=== PATIENT | female | born 1955 | race Caucasian/White ===

== ENCOUNTER → 2017-12-22 14:36 | Outpatient (CLI) | payer OTHER, SELFPAY ==
[2017-12-22 15:43] LABS: Add Manual Diff / Slide Review NO; Basophils Percent Auto 0.3 % (0-2); Eosinophils Percent Auto 3.6 % (2-4); Lymphocytes Percent Auto 33.5 % (25-40); Mean Corpuscular HGB Conc 34.3 % (30-36); Mean Corpuscular Hemoglobin 31.2 PG (26-34); Mean Corpuscular Volume 91.1 fL (80-100); Monocytes Percent Auto 6.8 % (3-14); Neutrophils Absolute Auto 4100 /uL (3000-5900); Neutrophils Percent Auto 55.8 % (50-75); Platelet Count 271 X10^3/uL (150-400); Red Blood Cell Count 3.84 X10^6/uL (4.0-5.2); Red Cell Distribution Width 12.9 % (11.6-14.8); White Blood Cell Count 7.3 X10^3/uL (4.5-11.0)
[2017-12-22 16:10] LABS: Blood Urea Nitrogen 22 mg/dL (7-17); Calcium 9.8 mg/dL (8.4-10.2); Carbon Dioxide 32 mmol/L (22-32); Chloride 100 mmol/L (98-107); Estimated Glomerular Filt Rate 55.8 mL/min (>60); Glucose 81 mg/dL (80-110); HEMOLYSIS < 15 (0-50); Potassium 4.6 mmol/L (3.4-5.1); Sodium 140 mmol/L (137-145)
== END ==
PROVIDERS: PCP Family Medicine; Visit Provider Orthopaedic Surgery Orthopaedic Surgery of the Spine
DX: Z01.818 Encounter for other preprocedural examination (principal)
CPT/HCPCS: 36415; 80048; 85025; 93005; 93010

== ENCOUNTER 2018-01-18 06:22 | Inpatient (IN) | payer OTHER, SELFPAY ==
[2018-01-01 14:16] VITALS: BMI 29.9
[2018-01-18] VITALS (14 sets, daily range): BP systolic 114–163; BP diastolic 50–79; PULSE 71–81; RESP 3–18; TEMP 36.4–36.9; O2SAT 95–100; BMI 29.9
--- NOTE | 2018-01-18 | DI.RAD.S_ITS ---
PROCEDURE: XR LUMBAR SPINE 2-3V INDICATIONS: L4-5, L5-S1 TLIF TECHNIQUE: 2 views of the lumbar spine were acquired. COMPARISON: [facility], , L-SPINE 2-3 VIEWS, 09/26/2016, 17:01. IMPRESSION: Two images obtained with a mobile image intensifier demonstrating chin and pedicle screw fixation of L4-S1. The intervertebral body spacer at L5-S1 may be displaced to the patient's left. Consider a dedicated radiograph for further evaluation. Dictated by: Jean Castro M.D. on 01/18/2018 at 12:14 Approved by: Jean Castro M.D. on 01/18/2018 at 12:15
[2018-01-18] MEDS: LACTATED RINGERS 1,000 ML 42 ML IV (07:39)
[2018-01-18] MEDS: APREPITANT 40 MG CAPSULE PO (07:57)
[2018-01-18] MEDS: SCOPOLAMINE 1 PATCH TOP (07:58)
[2018-01-18] MEDS: CEFAZOLIN 2 GM/100 ML FROZ.PIGGY IV ×2 (08:00→16:00)
--- NOTE | 2018-01-18 08:47 | SUR.OPER ---
Prone on spine table, head in foam head support, padded chest and pelvic supports, gel pad at knees, lower legs supported by pillows; nipples, genitalia and toes free of pressure, arms secured on foam padded arm boards at <90 degrees abduction. Tape over blanket at thigh secured to table.
[2018-01-18] MEDS: BUPIVACAINE 0.25% W/ EPI VIAL 50 ML INJ (09:36)
[2018-01-18] MEDS: BUPIVACAINE LIPOSOME 266 MG/20 ML VIAL INJ (09:40)
[2018-01-18] MEDS: ACETAMINOPHEN IV 1,000 MG/100 ML VIAL 400 MG IV (10:15)
--- NOTE | 2018-01-18 11:22 | PM.OP.1 ---
Operative Date/Time/Diagnoses Date of procedure: 01/18/18 Time of procedure: 08:22 Pre-op diagnosis: 1. L4-5, L5-S1 spondylolisthesis 2. L4-5, L5-S1 spinal stenosis. 3. L4-5, L5-S1 spondylosis with radiculopathy Post-op diagnosis: same Procedure & Clinicians Procedure: 1. L4-5, L5-S1 Postero-lateral and posterior interbody fusion 2. L4-5, L5-S1 interbody cage placement. 3. L4-5, L5-S1 decompressive laminectomy with bilateral facetecomies 4. L4-5, L5-S1 Posterior segmental instrumentation 5. Spangler of bone marrow from iliac crest 6. Utilization of microsurgical technique and operating microscope Same procedure as scheduled: Yes Indications: Patient has been having chronic back pain and worsening lumbar radiculopathy. Patient failed multiple conservative management with worsening pain weakness and numbness in her lower extremity. Patient has been having difficulty performing activity of daily living. After discussing risks benefits of treatment options, patient elected proceed with surgery. Surgeon: Shay Garrett Pig Handler: Kristel Maravilla Click Yes if Unassisted: No Anesthesia Type: General Operative Notes Closure Type: primary Specimen(s): none sent Implants & Drains: Globus revolve sccrews and Rise cages Applied: catheter Estimated Blood Loss (mL): 100 Blood products transfused: none Procedure in detail: Patient was seen in the preoperative area. Risks and benefits of the surgery was discussed with the patient. Informed consent was obtained from the patient and placed in the chart. Surgical site was marked. Patient was taken to the operative room. General anesthesia was administered. Prophylactic antibiotic was given to the patient less than 30 min before the incision was made. Patient was placed into a prone position on the Mark table. Patient's back was then prepped and draped in the sterile fashion. Time-out was performed at this time. Using AP and lateral C-arm imaging the interval between L4-S1 was identified and marked on patient's back. A 2 inch incision 2 in from midline was made on the left side first. The fascia was incised in line with skin incision. Globus MARS retractors was placed inside the incision and docked onto the L4 and L5 lamina. Using microsurgical technique and operating microscope, a L4 and L5 laminectomy and L4-5 L5-S1 facetectomy was performed using a Kerrison rongeur. The disc space at L4-5, L5-S1 was identified. And a total diskectomy was performed at L4-5, L5-S1 level. The endplates were decorticated using a rasp and shaver. The total diskectomy and decortication was performed at L4-5, L5-S1 level in order to to accomplish a L4-5, L5-S1 fusion. The local bone from the laminectomy and facetectomy was saved for local bone grafting. After the total diskectomy and decortication was completed, Globus viacell bone graft material was combined with local bone that was harvested earlier. At this time, a separate skin is incision was made over the iliac crest. A Jamshidi needle was inserted into the iliac crest through a separate skin incision. 5 cc of bone marrow aspiration was obtained through the separate skin incision using a Jamshidi needle from the iliac crest. The bone marrow aspiration was combined with local bone and the via cell bone grafting material. The bone grafting material was placed into the L4-5, L5-S1 interbody space along with two cages, one expandable cage at each level. The cages were expanded to their maximum height using the torque limiting screwdriver. At this time a mirror image incision was made on the right side. The fascia was incised in line with the skin incision. Globus MARS retractor was inserted and docked onto the L4-5, L5-S1 posterolateral gutter. Using the power drill, posterior-lateral decortication was performed at L4-5, L5-S1 level until bleeding cortical bone was identified. The remaining bone grafting material was placed into the L4-5 L5-S1 posterior lateral gutter he order to accomplish posterolateral fusion at the L4-5 L5-S1 levels. Using the double C-arm technique, pedicle screws were placed into the L4, L5, S1 pedicles bilaterally. This was done by placing the Jamshidi needle into the pedicles, then placing the guidewires over the Jamshidi needle, and finally placing the cannulated screws over the guidewires bilaterally. After the pedicle screws were placed, 2 titanium rods was locked into the heads of the pedicle screws using locking caps and torque limiting screwdriver. Total 6 pedicles screws were placed. After all the hardware was placed, and confirmed with AP and lateral C-arm imaging, the wound was then irrigated with sterile normal saline and packed with Ray-Guilherme gauze for 3 min to accomplish hemostasis. After the gauze was removed the deep fascia was closed with #1 Vicryl suture. The subcutaneous layer was closed with 2-0 Vicryl. The skin was closed with skin jackson. Patient tolerated the procedure well. There were no complications. Complications: none Condition: stable Disposition: PACU Plan for aftercare: Admit to inpatient hospital
[2018-01-18] MEDS: hydrOXYzine 50 MG/ML INJ IM (11:52)
[2018-01-18] MEDS: LORazepam 2 MG/ML SYRINGE 0.5 MG IV (12:34)
--- NOTE | 2018-01-18 13:06 | PC.NURSE ---
Pt to room 225 via bed at 1225. Pt very drowsy but awakens to loud verbal stimulation or shoulder shake. Pt has a hx of obstructive sleep apnea and has snoring respirations with long pauses up to 45 seconds. RT called and checked on Pt. Pt is averaging 2-4 resps per minutes and is sitting up at 40 degrees. Called OR/PACU to have Dr. Garrett notified and see if he would like Pt to be placed on tele or other. Awaiting orders. O2 sat on 1L of O2 via NC is 97-100%. Ice chip given to Pt for mouth dryness during a brief awake period but Pt is unable to answer questions or follow direction at this time.
[2018-01-18] MEDS: SODIUM CHLORIDE 0.9% 1,000 ML 100 ML IV ×2 (13:35→22:51)
--- NOTE | 2018-01-18 14:17 | PM.CN ---
History of Present Illness Chief complaint: [id number] [facility] Medical History Bilateral cataracts (Acute) Chronic pain (Acute) Colon polyps (Acute) Endometriosis (Acute) GERD (gastroesophageal reflux disease) (Acute) Genital herpes simplex (Acute) Headache, migraine (Acute) Hemorrhoids (Acute) Hyperlipidemia (Acute) Osteoarthritis (Acute) Polio (Acute) Restless leg syndrome (Acute) Sciatica (Acute) Sleep apnea (Acute) Tinnitus (Acute) Surgical History Hx of laparoscopy (Acute) Hx of tonsillectomy (Acute) Status post breast lumpectomy Status post cholecystectomy Status post hysterectomy Family History Father Stroke Alzheimer disease Grandfather Diabetes mellitus Heart disease Stroke Mother Dementia Mental health problem Sjogren's disease Skin cancer Cataract Social History Smoking Status: Former smoker alcohol intake: current Meds Home Medications Medication Instructions Recorded Confirmed Type nadolol [Corgard] 20 mg PO BEDTIME #0 07/15/16 01/18/18 History acetaminophen [Tylenol Extra 1,000 mg PO Q6H PRN 01/01/18 01/01/18 History Strength] losartan 50 mg PO QAM 01/01/18 01/18/18 History methocarbamol 750 mg PO QID PRN 01/01/18 01/01/18 History naproxen sodium [Aleve] 1 - 2 tab PO DAILY PRN 01/01/18 01/01/18 History Allergies Allergy/AdvReac Type Severity Reaction Status Date / Time codeine Allergy Mild Hives Verified 01/01/18 14:34 Exam Vital Signs (past 8 hours): - 01/18/18 06:45 01/18/18 11:39 01/18/18 11:44 Temperature 97.6 F 98 F Pulse Rate 81 79 78 Respiratory Rate 18 10 L 12 Blood Pressure 163/71 H 114/50 L 135/70 Pulse Oximetry 100 99 98 01/18/18 11:49 01/18/18 11:54 01/18/18 12:09 Temperature Pulse Rate 80 80 79 Respiratory Rate 11 L 10 L 10 L Blood Pressure 116/64 133/71 141/70 H Pulse Oximetry 99 96 100 01/18/18 12:14 01/18/18 12:50 Temperature Pulse Rate 79 76 Respiratory Rate 10 L 3 L Blood Pressure 132/71 Pulse Oximetry 98 Oxygen Delivery Method Nasal Cannula Oxygen Flow Rate 4 Assessment & Plan Plan: Assessment/Plan Narrative: Called to floor post op to evaluate post op TLIF patient for decreased respiratory status. Oxygen saturation remains stable, but she is needing continuous reminders to breathe. Patient had dilaudid 2mg, fentanyl 100 mcg and versed 2mg during the procedure (hours ago). And she received 0.5 mg Ativan in the PACU. She has a reported history of sleep apnea but does not use CPAP d/t claustrophobia. She is easy to arouse but is quite sedated with RR <6/min. Flumazenil 0.1mg given IV and she became easier to arouse, but RR still slow. Narcan 0.04 mg (diluted mixture) given with positive results. She will be transferred to the ICU for closer observation and management. Surgeon notified.
--- NOTE | 2018-01-18 14:26 | P.CONS_ITS ---
History of Present Illness Chief complaint: [id number] [facility] Medical History Bilateral cataracts (Acute) Chronic pain (Acute) Colon polyps (Acute) Endometriosis (Acute) GERD (gastroesophageal reflux disease) (Acute) Genital herpes simplex (Acute) Headache, migraine (Acute) Hemorrhoids (Acute) Hyperlipidemia (Acute) Osteoarthritis (Acute) Polio (Acute) Restless leg syndrome (Acute) Sciatica (Acute) Sleep apnea (Acute) Tinnitus (Acute) Surgical History Hx of laparoscopy (Acute) Hx of tonsillectomy (Acute) Status post breast lumpectomy Status post cholecystectomy Status post hysterectomy Family History Father Stroke Alzheimer disease Grandfather Diabetes mellitus Heart disease Stroke Mother Dementia Mental health problem Sjogren's disease Skin cancer Cataract Social History Smoking Status: Former smoker alcohol intake: current Meds Home Medications Medication Instructions Recorded Confirmed Type nadolol [Corgard] 20 mg PO BEDTIME #0 07/15/16 01/18/18 History acetaminophen [Tylenol Extra 1,000 mg PO Q6H PRN 01/01/18 01/01/18 History Strength] losartan 50 mg PO QAM 01/01/18 01/18/18 History methocarbamol 750 mg PO QID PRN 01/01/18 01/01/18 History naproxen sodium [Aleve] 1 - 2 tab PO DAILY PRN 01/01/18 01/01/18 History Allergies Allergy/AdvReac Type Severity Reaction Status Date / Time codeine Allergy Mild Hives Verified 01/01/18 14:34 Exam Vital Signs (past 8 hours): - 01/18/18 06:45 01/18/18 11:39 01/18/18 11:44 Temperature 97.6 F 98 F Pulse Rate 81 79 78 Respiratory Rate 18 10 L 12 Blood Pressure 163/71 H 114/50 L 135/70 Pulse Oximetry 100 99 98 01/18/18 11:49 01/18/18 11:54 01/18/18 12:09 Temperature Pulse Rate 80 80 79 Respiratory Rate 11 L 10 L 10 L Blood Pressure 116/64 133/71 141/70 H Pulse Oximetry 99 96 100 01/18/18 12:14 01/18/18 12:50 Temperature Pulse Rate 79 76 Respiratory Rate 10 L 3 L Blood Pressure 132/71 Pulse Oximetry 98 Oxygen Delivery Method Nasal Cannula Oxygen Flow Rate 4 Assessment & Plan Plan: Assessment/Plan Narrative: Called to floor post op to evaluate post op TLIF patient for decreased respiratory status. Oxygen saturation remains stable, but she is needing continuous reminders to breathe. Patient had dilaudid 2mg, fentanyl 100 mcg and versed 2mg during the procedure (hours ago). And she received 0.5 mg Ativan in the PACU. She has a reported history of sleep apnea but does not use CPAP d/t claustrophobia. She is easy to arouse but is quite sedated with RR <6 /min. Flumazenil 0.1mg given IV and she became easier to arouse, but RR still slow. Narcan 0.04 mg (diluted mixture) given with positive results. She will be transferred to the ICU for closer observation and management. Surgeon notified.
[2018-01-18] MEDS: FLUMAZENIL 0.5 MG/5 ML MDV 0.1 MG IV (14:39)
[2018-01-18] MEDS: NALOXONE 0.4 MG/ML VIAL IV ×3 (14:41→15:07)
--- NOTE | 2018-01-18 14:41 | PC.NURSE ---
Dr. Cantrell up to see Pt in room 225 for decreased respiratory rate. Narcan and Flumazinal given but respiratory rate continues at <6 per minute and Pt is requiring continuous reminders to breathe. Orders given to transfer Pt to ICU and Pt was transferred with [facility] and all belongings at 1416.
--- NOTE | 2018-01-18 14:51 | PC.NURSE ---
dr. Cantrell in to see pt on Acute for RR 4-9. Flumazenil and Narcan given. pt transfered to ICU. BP and HR stable. RR 4-8. Dr. Cantrell in again to eval pt. pt turned to right side. O2 at 2L/NC.
--- NOTE | 2018-01-18 15:55 | PC.NURSE ---
1545- Patient is sleepy but wakes easily and responds appropriately to questions. Respirations between 8-10. End Tidal CO2 is 46. Patient states her pain is at 6. Vitals are wnl. Will monitor.
--- NOTE | 2018-01-18 16:59 | PT.IPTN ---
Current Diagnoses Spondylolisthesis, lumbar region (01/18/18) Other spondylosis with radiculopathy, lumbar region (01/18/18) Spinal stenosis, lumbar region without neurogenic claudication (01/18/18) Surgery Performed Operation Date: 01/18/18 07:45 Actual Procedures p L4-5, L5-S1 TLIF w/ Posterior Instrumentation - Shay Garrett MD Physical Therapy Treatment Note M3 PT-IP Subjective Start: 01/18/18 16:58 Freq: NEEDED Status: Active Protocol: Document 01/18/18 16:59 AB (Rec: 01/18/18 16:59 AB [id number]) Subjective Physical Therapy Visit Type Notes checked with nursing and stated that pt is not ready for PT at this time. will f/u tomorrow.
[2018-01-18] MEDS: OXYCODONE IR 5 MG TABLET 10 MG PO ×3 (17:26→22:51)
[2018-01-18] MEDS: hydrOXYzine pamoate 25 MG CAPSULE PO (20:12)
[2018-01-18] MEDS: NADOLOL 40 MG TABLET 20 MG PO (20:16)
[2018-01-18] MEDS: SENNOSIDES 8.6 MG TABLET 17.2 MG PO (20:17)
[2018-01-18] MEDS: DOCUSATE 100 MG CAPSULE PO (20:17)
[2018-01-19] VITALS (7 sets, daily range): BP systolic 97–126; BP diastolic 52–72; PULSE 71–78; RESP 14–16; TEMP 36.4–36.9; O2SAT 95–100
[2018-01-19] MEDS: CEFAZOLIN 2 GM/100 ML FROZ.PIGGY IV (00:04)
[2018-01-19] MEDS: OXYCODONE IR 5 MG TABLET 10 MG PO ×7 (01:54→21:18)
[2018-01-19 05:26] LABS: Hematocrit 30.1 % (36-46); Hemoglobin 10.5 g/dL (12.0-16.0)
[2018-01-19] MEDS: LOSARTAN 50 MG TABLET PO (08:03)
[2018-01-19] MEDS: DOCUSATE 100 MG CAPSULE PO ×2 (08:03→20:54)
--- NOTE | 2018-01-19 10:10 | PT.IIE ---
Current Diagnoses Spondylolisthesis, lumbar region (01/18/18) Other spondylosis with radiculopathy, lumbar region (01/18/18) Spinal stenosis, lumbar region without neurogenic claudication (01/18/18) Surgery Performed Operation Date: 01/18/18 07:45 Actual Procedures p L4-5, L5-S1 TLIF w/ Posterior Instrumentation - Shay Garrett MD Surgical History (Last Updated 01/01/18 @ 14:48 by Marybel Schroeder RN) Hx of laparoscopy (Acute) Hx of tonsillectomy (Acute) Status post breast lumpectomy Status post cholecystectomy Status post hysterectomy Medical History (Last Updated 01/01/18 @ 14:48 by Marybel Schroeder RN) Bilateral cataracts (Acute) Chronic pain (Acute) Colon polyps (Acute) Endometriosis (Acute) GERD (gastroesophageal reflux disease) (Acute) Genital herpes simplex (Acute) Headache, migraine (Acute) Hemorrhoids (Acute) Hyperlipidemia (Acute) Osteoarthritis (Acute) Polio (Acute) Restless leg syndrome (Acute) Sciatica (Acute) Sleep apnea (Acute) Tinnitus (Acute) Physical Therapy Inpatient Evaluation/Re-Eval M1 PT/OT-IP Prior Functional Status Start: 01/18/18 16:58 Freq: NEEDED Status: Active Protocol: Document 01/19/18 10:10 AB (Rec: 01/19/18 12:52 AB [id number]) Medical Review Prior Functional Status Medical History Reviewed Yes Communication able to make needs known Mobility and Gait pt stated that she is independent with all mobilities and ambulation without AD Social History Household Members none Living Arrangements Apartment/Condo Number of Floors (Floors) Two Floors Number of Stairs To Enter/Railing? pt will stay on main level. stated that she has a day bed on 1st floor of the house. 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 Additional Social History Comment pt works for home [employer] M2 PT-IP Current Condition Start: 01/18/18 16:58 Freq: NEEDED Status: Active Protocol: Document 01/19/18 10:10 AB (Rec: 01/19/18 12:52 AB [id number]) Physical Therapy Current Condition Current Condition Evaluation Date 01/19/18 Treatment Diagnosis s/p L4-5 L5S1 fusion and lami; difficulty in walking Onset Date 01/18/18 Precautions Lumbar Precautions Log Roll No Twisting Limit Bending Lifting Restriction of 10 lbs Gait Belt above Incisional Area M3 PT-IP Subjective Start: 01/18/18 16:58 Freq: NEEDED Status: Active Protocol: Document 01/19/18 10:10 AB (Rec: 01/19/18 12:52 AB [id number]) Subjective Physical Therapy Visit Type Type Initial Evaluation Visit Start Time 10:10 Visit Stop Time 10:51 Total Visit Minutes 41 Number of INSTALLATION & MAINTENANCE EXECUTIVE Visits 0 Physical Therapy Visit Comments Patient Comments pt agreeable to do PT Therapy Pain Assessment Pain When Pain Assessed At Rest Pain Present Pain Present Pain Reported Location Lower Back Intensity 5 Scale Used Numeric (1 - 10) Pain Management Techniques Apply Cold Re-positioning Timing of Activity with Medications M4 PT-IP Mobility and Gait Start: 01/18/18 16:58 Freq: NEEDED Status: Active Protocol: Document 01/19/18 10:10 AB (Rec: 01/19/18 12:52 AB [id number]) PT-Bed Mobility Assessment Rolling Type of Rolling Log Rolling Level of Assist Standby Assistance Supine to Sit Supine to Sit Minimal Assistance Bedrails PT-Transfer Assessment Sit to and From Stand Sit to and from Stand Moderate Assistance Maximum Assistance 1 Person Assistance Use of Upper Extremities Equipment Transfer Assistive Device Gait Belt Front Wheeled Walker Orthotic/Prosthetic Devices or Brace: No Transfers Transfer Destination Chair Transfer Technique Stand Step Pivot Transfer Ability Level of Assist Moderate Assistance Maximum Assistance 1 Person Assistance Use of Upper Extremities Gait Assessment Gait Gait Assistance Required: Moderate Assistance Distance (Feet) (feet) 8 Able to Maintain Weight Bearing Status Yes During Gait Assistive Devices Assistive Device Gait Belt Front Wheeled Walker Orthotic/Prosthetic Devices or Brace: No Gait Deviations General Gait Pattern Decreased Stride Length Decreased Feet Clearance Factors Limiting Gait Function Factors Limiting Gait Function Decreased Activity Tolerance Decreased Strength Pain Poor Balance PT-Balance Assessment Sitting Balance and Reactions Static Sitting Balance Ability Good Dynamic Sitting Balance Ability Good Standing Balance and Reactions Static Standing Balance Ability Fair Dynamic Standing Balance Ability Fair Device Used FWW M5 PT-IP Objective Assessments Start: 01/18/18 16:58 Freq: NEEDED Status: Active Protocol: Document 01/19/18 10:10 AB (Rec: 01/19/18 12:52 AB [id number]) Orientation Orientation/Cognition Level of Alertness Alert Orientation Name Age Birthday Month Date Year Day of Week Place Situation Gross Range of Motion Lower Extremity ROM Assessment Within Functional Limits Strength Lower Extremity Strength Assessment Within Functional Limits Muscle Tone Muscle Tone WNL Yes M6 PT-IP Treatment Start: 01/18/18 16:58 Freq: NEEDED Status: Active Protocol: Document 01/19/18 10:10 AB (Rec: 01/19/18 12:52 AB [id number]) Physical Therapy Treatment Education Education Provided Precautions Weight Bearing Status Post-Op Packet Safety M7 PT-IP Assessment and Plan Start: 01/18/18 16:58 Freq: NEEDED Status: Active Protocol: Document 01/19/18 10:10 AB (Rec: 01/19/18 12:52 AB [id number]) PT Summary Assessment and Plan Potential Rehabilitation Potential Good Status of Condition at Evaluation Evolving Summary Impairments Pain ROM Strength Balance Bed Mobility Transfers Gait Activity Tolerance Assessment Summary pt requires mod to max A with sit to stand and presents with unsteady gait using FWW for support. pt lives alone and will not have much support at home. pt stated that she can call her friends to assist her if needed but will not be able to stay with her. d/c plan depending on pt's progress and mobility upon d/c and will need homehealth services if pt is going home. Goals Bed Mobility Goal Independent Transfer Goal Independent Gait Goal Independent Gait Distance 150 Days to Meet Goals 3 Frequency of Treatment Frequency Of Treatment Twice a Day Treatment Plan Physical Therapy Treatment Plan Bed Mobility Training Transfer Training Gait Training Therapeutic Exercise Balance Retraining Post Op Education Discharge Planning Hot or Cold Pack Neuromuscular Re-ed Coordination Retraining Manual Therapy Recommendations To Nursing Amount of Assist Needed 1 Person Assist Discharge Recommendations PT Discharge Recommendations Home with Assistance Home Health SNF Rehab Other Discharge Recommendations SNF vs home with assist/ homehealth Equipment Needed for Home Before FWW; shower chair Discharge
--- NOTE | 2018-01-19 10:36 | PM.PNPO.1 ---
Subjective Date Patient Seen: 01/19/18 Interval history: Patient seen bedside s/p TLIF POD #1. Patient was transferred to the ICU after surgery last night due to respiratory depression. Patient had episodes of apnea overnight. She has sleep apnea, but did not tolerate a CPAP previously. Today her O2 saturations have normalized and she is ready to be downgraded to the acute care floor. She has worked with PT and did well, but they recommend home health because the patient lives alone. Exam Vital Signs (past 8 hours): - 01/19/18 04:00 01/19/18 07:46 Temperature 97.8 F 98.0 F Pulse Rate 78 71 Respiratory Rate 14 14 Blood Pressure 120/54 L 126/52 L Pulse Oximetry 100 99 Oxygen Delivery Method Nasal Cannula Oxygen Flow Rate 2 Narrative Exam Narrative: WDWN NAD A&Ox3. Lumbar dressing CDI, patient NVI in both lower extremities with no focal deficits noted. Tar[place] in place. Calves are soft and compressible. Objective Labs Result Diagrams: 01/19/18 04:49 Labs: Laboratory Results - last 24 hr 01/19/18 04:49 Hgb 10.5 L Hct 30.1 L Assessment & Plan Post-op Postoperative Procedures Operation Date: 01/18/18 07:45 Actual Procedures Side Surgeon p L4-5, L5-S1 TLIF w/ Posterior Instrumentation Shay Garrett MD 1. Transfer to acute care floor 2. Continue pain control 3. Continue PT/OT 4. Consult for home health 5. Possible d/c tomorrow if pain is controlled and cleared by PT. Quality VTE Deep Vein Thrombosis/Pulmonary Embolism Present on Admission: No
[2018-01-19] MEDS: ACETAMINOPHEN 325 MG TABLET 975 MG PO ×2 (12:27→18:26)
--- NOTE | 2018-01-19 14:45 | PT.IPTN ---
Current Diagnoses Spondylolisthesis, lumbar region (01/18/18) Other spondylosis with radiculopathy, lumbar region (01/18/18) Spinal stenosis, lumbar region without neurogenic claudication (01/18/18) Surgery Performed Operation Date: 01/18/18 07:45 Actual Procedures p L4-5, L5-S1 TLIF w/ Posterior Instrumentation - Shay Garrett MD Physical Therapy Treatment Note M2 PT-IP Current Condition Start: 01/18/18 16:58 Freq: NEEDED Status: Active Protocol: Document 01/19/18 10:10 AB (Rec: 01/19/18 12:52 AB [id number]) Physical Therapy Current Condition Current Condition Evaluation Date 01/19/18 Treatment Diagnosis s/p L4-5 L5S1 fusion and lami; difficulty in walking Onset Date 01/18/18 Precautions Lumbar Precautions Log Roll No Twisting Limit Bending Lifting Restriction of 10 lbs Gait Belt above Incisional Area M3 PT-IP Subjective Start: 01/18/18 16:58 Freq: NEEDED Status: Active Protocol: Document 01/19/18 14:45 AB (Rec: 01/19/18 16:24 AB [id number]) Subjective Physical Therapy Visit Type Type Treatment Note Visit Start Time 14:45 Visit Stop Time 15:01 Total Visit Minutes 16 Number of SHAKER SCREEN OPERATOR Visits 0 Physical Therapy Visit Comments Patient Comments pt agreeable to do PT Therapy Pain Assessment Pain When Pain Assessed At Rest Pain Present Pain Present Pain Reported Location Lower Back Intensity 7 Scale Used Numeric (1 - 10) Pain Management Techniques Timing of Activity with Medications M4 PT-IP Mobility and Gait Start: 01/18/18 16:58 Freq: NEEDED Status: Active Protocol: Document 01/19/18 14:45 AB (Rec: 01/19/18 16:24 AB [id number]) PT-Bed Mobility Assessment Supine to Sit Supine to Sit Standby Assistance Bedrails PT-Transfer Assessment Sit to and From Stand Sit to and from Stand Moderate Assistance 1 Person Assistance Use of Upper Extremities Equipment Transfer Assistive Device Bed Rail Front Wheeled Walker Comments Mobility Comments pt completed sit <>stand x 4 reps with initial mod A and max cues. educated pt on techniques and was able to perform a few more reps of sit <>stand with CGA and cues. Gait Assessment Gait Gait Assistance Required: Contact Guard Assist Distance (Feet) (feet) 35 Able to Maintain Weight Bearing Status Yes During Gait Assistive Devices Assistive Device Gait Belt Front Wheeled Walker Orthotic/Prosthetic Devices or Brace: No Gait Deviations General Gait Pattern Antalgic Factors Limiting Gait Function Factors Limiting Gait Function Decreased Activity Tolerance Decreased Strength Pain Poor Balance Poor Safety Awareness M5 PT-IP Objective Assessments Start: 01/18/18 16:58 Freq: NEEDED Status: Active Protocol: Document 01/19/18 10:10 AB (Rec: 01/19/18 12:52 AB [id number]) Orientation Orientation/Cognition Level of Alertness Alert Orientation Name Age Birthday Month Date Year Day of Week Place Situation Gross Range of Motion Lower Extremity ROM Assessment Within Functional Limits Strength Lower Extremity Strength Assessment Within Functional Limits Muscle Tone Muscle Tone WNL Yes M6 PT-IP Treatment Start: 01/18/18 16:58 Freq: NEEDED Status: Active Protocol: Document 01/19/18 14:45 AB (Rec: 01/19/18 16:24 AB [id number]) Physical Therapy Treatment Education Education Provided Precautions Safety Other Treatments Other Treatment Performed pt requires cues to recall back precautions and cues for techniques with mobility M7 PT-IP Assessment and Plan Start: 01/18/18 16:58 Freq: NEEDED Status: Active Protocol: Document 01/19/18 14:45 AB (Rec: 01/19/18 16:24 AB [id number]) PT Summary Assessment and Plan Potential Rehabilitation Potential Good Summary Impairments Pain ROM Strength Balance Cognition Bed Mobility Transfers Gait Activity Tolerance Progress Towards Goals Slow Progress due to Pain Slow Progress due to Activity Tolerance Assessment Summary pt progressing slowly but continues to have decrease activity tolerance and c/o pain affecting mobility. d/c plan depending on progress and level of assistance upon d/c. Goals Bed Mobility Goal Independent Transfer Goal Independent Gait Goal Independent Gait Distance 150 Days to Meet Goals 3 Frequency of Treatment Frequency Of Treatment Twice a Day Treatment Plan Physical Therapy Treatment Plan Bed Mobility Training Transfer Training Gait Training Therapeutic Exercise Balance Retraining Post Op Education Discharge Planning Hot or Cold Pack Neuromuscular Re-ed Coordination Retraining Manual Therapy Recommendations To Nursing Amount of Assist Needed 1 Person Assist Discharge Recommendations PT Discharge Recommendations Home with Assistance Home Health SNF Rehab Other Discharge Recommendations SNF vs home with assist/ homehealth Equipment Needed for Home Before FWW; shower chair Discharge
--- NOTE | 2018-01-19 16:13 | OT.IP.EVAL ---
Current Diagnoses Spondylolisthesis, lumbar region (01/18/18) Other spondylosis with radiculopathy, lumbar region (01/18/18) Spinal stenosis, lumbar region without neurogenic claudication (01/18/18) Surgery Performed Operation Date: 01/18/18 07:45 Actual Procedures p L4-5, L5-S1 TLIF w/ Posterior Instrumentation - Shay Garrett MD Past Medical History (Last Updated 01/01/18 @ 14:48 by Marybel Schroeder RN) Bilateral cataracts (Acute) Chronic pain (Acute) Colon polyps (Acute) Endometriosis (Acute) GERD (gastroesophageal reflux disease) (Acute) Genital herpes simplex (Acute) Headache, migraine (Acute) Hemorrhoids (Acute) Hyperlipidemia (Acute) Osteoarthritis (Acute) Polio (Acute) Restless leg syndrome (Acute) Sciatica (Acute) Sleep apnea (Acute) Tinnitus (Acute) Surgical History (Last Updated 01/01/18 @ 14:48 by Marybel Schroeder RN) Hx of laparoscopy (Acute) Hx of tonsillectomy (Acute) Status post breast lumpectomy Status post cholecystectomy Status post hysterectomy Occupational Therapy Inpatient Evaluation/Re-Eval M1 PT/OT-IP Prior Functional Status Start: 01/18/18 16:58 Freq: NEEDED Status: Active Protocol: Document 01/19/18 10:10 AB (Rec: 01/19/18 12:52 AB [id number]) Medical Review Prior Functional Status Medical History Reviewed Yes Communication able to make needs known Mobility and Gait pt stated that she is independent with all mobilities and ambulation without AD Social History Household Members none Living Arrangements Apartment/Condo Number of Floors (Floors) Two Floors Number of Stairs To Enter/Railing? pt will stay on main level. stated that she has a day bed on 1st floor of the house. 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 Additional Social History Comment pt works for [employer] M1 PT/OT-IP Prior Functional Status Start: 01/19/18 15:47 Freq: NEEDED Status: Active Protocol: Document 01/19/18 15:48 [facility] (Rec: 01/19/18 16:13 [facility] [id number]) Medical Review Prior Functional Status Medical History Reviewed Yes Communication able to make needs known Mobility and Gait pt stated that she is independent with all mobilities and ambulation without AD Activities of Daily Living and IADL's Independent Social History Household Members none Living Arrangements Apartment/Condo Number of Floors (Floors) Two Floors Number of Stairs To Enter/Railing? pt will stay on main level. stated that she has a day bed on 1st floor of the house. 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 Additional Social History Comment pt works for [employer] M2 OT-IP Current Condition Start: 01/19/18 15:47 Freq: Status: Active Protocol: Document 01/19/18 15:48 [facility] (Rec: 01/19/18 16:13 [facility] [id number]) Occupational Therapy Current Condition Current Condition Evaluation Date 01/19/18 Treatment Diagnosis Lumbar stenosis Diagnosis Onset Date 01/18/18 Post Operative Precautions Lumbar Precautions Log Roll No Twisting Limit Bending Lifting Restriction of 10 lbs Gait Belt above Incisional Area M3 OT- IP Subjective and Pain Start: 01/19/18 15:47 Freq: Status: Active Protocol: Document 01/19/18 15:48 [facility] (Rec: 01/19/18 16:13 [facility] [id number]) OT- Subjective Occupational Therapy Visit Type Type Initial Evaluation Visit Start Time 14:45 Visit Stop Time 15:06 Total Visit Minutes 21 Occupational Therapy Visit Comments Patient/Caregiver Goals Pt does not feel ready to go home yet. OT Pain Assessment Pain When Pain Assessed At Rest Pain Present Pain Present Denied Pain M4 OT- IP ADL's Start: 01/19/18 15:47 Freq: Status: Active Protocol: Document 01/19/18 15:48 [facility] (Rec: 01/19/18 16:13 [facility] [id number]) OT ADL-Dressing General Eval Lower Body Dressing Ability Maximum Assistance Comments OT Dressing Comments Pt has assistant professor of archaeology and to give sock aid to pt. Pt able to demonstrate goo safety for LB AED needs. OT ADL-Bathing Comments OT Bathing Comments Pt states to get shower chair and that friend can be around when having to shower. M5 OT- IP IADL's Start: 01/19/18 15:47 Freq: Status: Active Protocol: Document 01/19/18 15:48 [facility] (Rec: 01/19/18 16:13 [facility] [id number]) OT-Instrumental Activities of Daily Living Meal Preparation Meal Preparation Comments Friends to assist. Web Art Director Web Art Director Comments Friends to assist. M6 OT- IP Functional Cognition Start: 01/19/18 15:47 Freq: Status: Active Protocol: Document 01/19/18 15:48 [facility] (Rec: 01/19/18 16:13 [facility] [id number]) Cognitive Factors Limiting Selfcare Function Cognitive Ability Level of Alertness Alert Patient Orientation Name Place Situation Attention Span Ability Capable of Focused Attention Capable of Sustained Attention Ability to Follow Commands Able to Follow One Step Commands Memory Description Short Term Impaired Safety Awareness Decreased Recall of Precautions Decreased Ability to Apply Precautions Underestimates Need for Assistance Problem Solving Ability Needs Assist to Identify Solutions Cognitive Comments Cognitive Assessment Comments Pt unable to recall back precautions and needing MOD A to recall back precautions and incorporate into ADl's and mobility needs. OT- Vision and Hearing OT- Hearing Assessment OT- Hearing Assessment WFL M7 OT- IP Mobility and Balance Start: 01/19/18 15:47 Freq: Status: Active Protocol: Document 01/19/18 15:48 [facility] (Rec: 01/19/18 16:13 [facility] [id number]) OT- Bed Mobility Assessment Rolling Type of Rolling Roll to Left Supine to Sit Supine to Sit Assist Contact Guard Assistance Sit to Supine Sit to Supine Assist Contact Guard Assistance OT-Transfer Assessment Sit to and From Stand Sit to and from Stand Contact Guard Assistance Minimal Assistance Transfers Transfer Ability Contact Guard Assistance Minimal Assistance Technique Transfer Destination Bed Transfer Technique Stand Step Pivot Devices Transfer Assistive Devices Gait Belt Front Wheeled Walker Comments Mobility Comments Heavy use of bed rails and and step by step instructions for bed mobility. Pt able to do better after PT education for sit to stand for technique and hand placement. OT- Balance Assessment Sitting Balance and Reactions Static Sitting Balance Ability Normal Dynamic Sitting Balance Ability Normal Standing Balance and Reactions Static Standing Balance Ability Fair M8 OT- IP Objective Assessments Start: 01/19/18 15:47 Freq: Status: Active Protocol: Document 01/19/18 15:48 [facility] (Rec: 01/19/18 16:13 [facility] [id number]) OT Gross Range of Motion Upper Extremity Range of Motion Assessment Within Functional Limits M9 OT- IP Assessment and Plan Start: 01/19/18 15:47 Freq: Status: Active Protocol: Document 01/19/18 15:48 [facility] (Rec: 01/19/18 16:13 [facility] [id number]) OT Summary Assessment and Plan Potential Rehabilitation Potential Good Analytic Complexity at Evaluation Low Summary OT Impairments Balance Functional Cognition Functional Mobility Grooming Dressing Toileting Bathing Toilet Transfers Shower Transfers Progress Towards Goals Slow Progress due to Pain Slow Progress due to Activity Tolerance Slow Progress due to Cognition Assessment Summary Pt low complexity and main barrier is steps, activity tolerance, safety awareness of back precautions, pt would benefit from further therapy in inpt rehab as pt lives alone to increase independence and safety for all Adl and functional mobility needs. Goals Grooming Goal Independent Dressing Goal Independent Toileting Goal Independent Bathing Goal Standby Assistance Toilet Transfer Goal Independent Shower Transfer Goal Standby Assistance Patient/Caregiver Education Goal Demonstrate Post-Op Precautions Days to Meet Goals 5 Frequency of Treatment Frequency Of Treatment Once a Day Treatment Plan OT Treatment Plan ADL Training Functional Cognition Training Functional Mobility Patient/Family Education Discharge Planning Other Treatment Recommendations and Next Stand for grooming, practice Treatment Focus AEd and shower if appropriate. Discharge Recommendations OT Discharge Recommendations Home with Assistance Home Equipment Needs FWW, shower chair
--- NOTE | 2018-01-19 16:24 | OT.IP.EVAL ---
Current Diagnoses Spondylolisthesis, lumbar region (01/18/18) Other spondylosis with radiculopathy, lumbar region (01/18/18) Spinal stenosis, lumbar region without neurogenic claudication (01/18/18) Surgery Performed Operation Date: 01/18/18 07:45 Actual Procedures p L4-5, L5-S1 TLIF w/ Posterior Instrumentation - Shay Garrett MD Past Medical History (Last Updated 01/01/18 @ 14:48 by Marybel Schroeder RN) Bilateral cataracts (Acute) Chronic pain (Acute) Colon polyps (Acute) Endometriosis (Acute) GERD (gastroesophageal reflux disease) (Acute) Genital herpes simplex (Acute) Headache, migraine (Acute) Hemorrhoids (Acute) Hyperlipidemia (Acute) Osteoarthritis (Acute) Polio (Acute) Restless leg syndrome (Acute) Sciatica (Acute) Sleep apnea (Acute) Tinnitus (Acute) Surgical History (Last Updated 01/01/18 @ 14:48 by Marybel Schroeder RN) Hx of laparoscopy (Acute) Hx of tonsillectomy (Acute) Status post breast lumpectomy Status post cholecystectomy Status post hysterectomy Occupational Therapy Inpatient Evaluation/Re-Eval M1 PT/OT-IP Prior Functional Status Start: 01/18/18 16:58 Freq: NEEDED Status: Active Protocol: Document 01/19/18 10:10 AB (Rec: 01/19/18 12:52 AB [id number]) Medical Review Prior Functional Status Medical History Reviewed Yes Communication able to make needs known Mobility and Gait pt stated that she is independent with all mobilities and ambulation without AD Social History Household Members none Living Arrangements Apartment/Condo Number of Floors (Floors) Two Floors Number of Stairs To Enter/Railing? pt will stay on main level. stated that she has a day bed on 1st floor of the house. 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 (Rec: 01/19/18 16:13 [facility] [id number]) Medical Review Prior Functional Status Medical History Reviewed Yes Communication able to make needs known Mobility and Gait pt stated that she is independent with all mobilities and ambulation without AD Activities of Daily Living and IADL's Independent Social History Household Members none Living Arrangements Apartment/Condo Number of Floors (Floors) Two Floors Number of Stairs To Enter/Railing? pt will stay on main level. stated that she has a day bed on 1st floor of the house. 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 (Rec: 01/19/18 16:13 [facility] [email or web address]) Occupational Therapy Current Condition Current Condition Evaluation Date 01/19/18 Treatment Diagnosis Lumbar stenosis Diagnosis Onset Date 01/18/18 Post Operative Precautions Lumbar Precautions Log Roll No Twisting Limit Bending Lifting Restriction of 10 lbs Gait Belt above Incisional Area M3 OT- IP Subjective and Pain Start: 01/19/18 15:47 Freq: Status: Active Protocol: Document 01/19/18 15:48 [facility] (Rec: 01/19/18 16:13 [facility] [id number]) OT- Subjective Occupational Therapy Visit Type Type Initial Evaluation Visit Start Time 14:45 Visit Stop Time 15:06 Total Visit Minutes 21 Occupational Therapy Visit Comments Patient/Caregiver Goals Pt does not feel ready to go home yet. OT Pain Assessment Pain When Pain Assessed At Rest Pain Present Pain Present Denied Pain M4 OT- IP ADL's Start: 01/19/18 15:47 Freq: Status: Active Protocol: Document 01/19/18 15:48 [facility] (Rec: 01/19/18 16:13 [facility] [id number]) OT ADL-Dressing General Eval Lower Body Dressing Ability Maximum Assistance Comments OT Dressing Comments Pt has rfid strategist and to give sock aid to pt. Pt able to demonstrate goo safety for LB AED needs. OT ADL-Bathing Comments OT Bathing Comments Pt states to get shower chair and that friend can be around when having to shower. M5 OT- IP IADL's Start: 01/19/18 15:47 Freq: Status: Active Protocol: Document 01/19/18 15:48 [facility] (Rec: 01/19/18 16:13 [facility] [id number]) OT-Instrumental Activities of Daily Living Meal Preparation Meal Preparation Comments Friends to assist. Neonatal Intensive Care Unit Nurse Neonatal Intensive Care Unit Nurse Comments Friends to assist. M6 OT- IP Functional Cognition Start: 01/19/18 15:47 Freq: Status: Active Protocol: Document 01/19/18 15:48 [facility] (Rec: 01/19/18 16:13 [facility] [id number]) Cognitive Factors Limiting Selfcare Function Cognitive Ability Level of Alertness Alert Patient Orientation Name Place Situation Attention Span Ability Capable of Focused Attention Capable of Sustained Attention Ability to Follow Commands Able to Follow One Step Commands Memory Description Short Term Impaired Safety Awareness Decreased Recall of Precautions Decreased Ability to Apply Precautions Underestimates Need for Assistance Problem Solving Ability Needs Assist to Identify Solutions Cognitive Comments Cognitive Assessment Comments Pt unable to recall back precautions and needing MOD A to recall back precautions and incorporate into ADl's and mobility needs. OT- Vision and Hearing OT- Hearing Assessment OT- Hearing Assessment WFL M7 OT- IP Mobility and Balance Start: 01/19/18 15:47 Freq: Status: Active Protocol: Document 01/19/18 15:48 [facility] (Rec: 01/19/18 16:13 [facility] [email or web address]) OT- Bed Mobility Assessment Rolling Type of Rolling Roll to Left Supine to Sit Supine to Sit Assist Contact Guard Assistance Sit to Supine Sit to Supine Assist Contact Guard Assistance OT-Transfer Assessment Sit to and From Stand Sit to and from Stand Contact Guard Assistance Minimal Assistance Transfers Transfer Ability Contact Guard Assistance Minimal Assistance Technique Transfer Destination Bed Transfer Technique Stand Step Pivot Devices Transfer Assistive Devices Gait Belt Front Wheeled Walker Comments Mobility Comments Heavy use of bed rails and and step by step instructions for bed mobility. Pt able to do better after Pt educationg fro sit to stand. OT- Balance Assessment Sitting Balance and Reactions Static Sitting Balance Ability Normal Dynamic Sitting Balance Ability Normal Standing Balance and Reactions Static Standing Balance Ability Fair M8 OT- IP Objective Assessments Start: 01/19/18 15:47 Freq: Status: Active Protocol: Document 01/19/18 15:48 [facility] (Rec: 01/19/18 16:13 [facility] [id number]) OT Gross Range of Motion Upper Extremity Range of Motion Assessment Within Functional Limits M9 OT- IP Assessment and Plan Start: 01/19/18 15:47 Freq: Status: Active Protocol: Document 01/19/18 15:48 [facility] (Rec: 01/19/18 16:13 [facility] [id number]) OT Summary Assessment and Plan Potential Rehabilitation Potential Good Analytic Complexity at Evaluation Low Summary OT Impairments Balance Functional Cognition Functional Mobility Grooming Dressing Toileting Bathing Toilet Transfers Shower Transfers Progress Towards Goals Slow Progress due to Pain Slow Progress due to Activity Tolerance Slow Progress due to Cognition Assessment Summary Pt low complexity and main barrier is steps, activity tolerance, safety awareness of back precautions, pt would benefit from further therapy in inpt rehab as pt lives alone to increase independence and safety for all ADL and functional mobility needs. Prior pt did have plans for assist, but her help no longer able to assist. May need short skilled rehab versus home with home health. Goals Grooming Goal Independent Dressing Goal Independent Toileting Goal Independent Bathing Goal Standby Assistance Toilet Transfer Goal Independent Shower Transfer Goal Standby Assistance Patient/Caregiver Education Goal Demonstrate Post-Op Precautions Days to Meet Goals 5 Frequency of Treatment Frequency Of Treatment Once a Day Treatment Plan OT Treatment Plan ADL Training Functional Cognition Training Functional Mobility Patient/Family Education Discharge Planning Other Treatment Recommendations and Next Stand for grooming, practice Treatment Focus AEd and shower if appropriate. Discharge Recommendations OT Discharge Recommendations SNF Rehab Other Discharge Recommendations Pt pending progress home with assist and home health. Home Equipment Needs FWW, shower chair
--- NOTE | 2018-01-19 16:45 | PT.IPTN ---
Current Diagnoses Spondylolisthesis, lumbar region (01/18/18) Other spondylosis with radiculopathy, lumbar region (01/18/18) Spinal stenosis, lumbar region without neurogenic claudication (01/18/18) Surgery Performed Operation Date: 01/18/18 07:45 Actual Procedures p L4-5, L5-S1 TLIF w/ Posterior Instrumentation - Shay Garrett MD Physical Therapy Treatment Note M2 PT-IP Current Condition Start: 01/18/18 16:58 Freq: NEEDED Status: Active Protocol: Document 01/19/18 10:10 AB (Rec: 01/19/18 12:52 AB [id number]) Physical Therapy Current Condition Current Condition Evaluation Date 01/19/18 Treatment Diagnosis s/p L4-5 L5S1 fusion and lami; difficulty in walking Onset Date 01/18/18 Precautions Lumbar Precautions Log Roll No Twisting Limit Bending Lifting Restriction of 10 lbs Gait Belt above Incisional Area M3 PT-IP Subjective Start: 01/18/18 16:58 Freq: NEEDED Status: Active Protocol: Document 01/19/18 14:45 AB (Rec: 01/19/18 16:24 AB [id number]) Subjective Physical Therapy Visit Type Type Treatment Note Visit Start Time 14:45 Visit Stop Time 15:01 Total Visit Minutes 16 Number of SECOND FLOOR OPERATOR Visits 0 Physical Therapy Visit Comments Patient Comments pt agreeable to do PT; pt clarified that she has 3 steps to get to her house with 1 rail Therapy Pain Assessment Pain When Pain Assessed At Rest Pain Present Pain Present Pain Reported Location Lower Back Intensity 7 Scale Used Numeric (1 - 10) Pain Management Techniques Timing of Activity with Medications M4 PT-IP Mobility and Gait Start: 01/18/18 16:58 Freq: NEEDED Status: Active Protocol: Document 01/19/18 14:45 AB (Rec: 01/19/18 16:24 AB [id number]) PT-Bed Mobility Assessment Supine to Sit Supine to Sit Standby Assistance Bedrails PT-Transfer Assessment Sit to and From Stand Sit to and from Stand Moderate Assistance 1 Person Assistance Use of Upper Extremities Equipment Transfer Assistive Device Bed Rail Front Wheeled Walker Comments Mobility Comments pt completed sit <>stand x 4 reps with initial mod A and max cues. educated pt on techniques and was able to perform a few more reps of sit <>stand with CGA and cues. Gait Assessment Gait Gait Assistance Required: Contact Guard Assist Distance (Feet) (feet) 35 Able to Maintain Weight Bearing Status Yes During Gait Assistive Devices Assistive Device Gait Belt Front Wheeled Walker Orthotic/Prosthetic Devices or Brace: No Gait Deviations General Gait Pattern Antalgic Factors Limiting Gait Function Factors Limiting Gait Function Decreased Activity Tolerance Decreased Strength Pain Poor Balance Poor Safety Awareness M5 PT-IP Objective Assessments Start: 01/18/18 16:58 Freq: NEEDED Status: Active Protocol: Document 01/19/18 10:10 AB (Rec: 01/19/18 12:52 AB [id number]) Orientation Orientation/Cognition Level of Alertness Alert Orientation Name Age Birthday Month Date Year Day of Week Place Situation Gross Range of Motion Lower Extremity ROM Assessment Within Functional Limits Strength Lower Extremity Strength Assessment Within Functional Limits Muscle Tone Muscle Tone WNL Yes M6 PT-IP Treatment Start: 01/18/18 16:58 Freq: NEEDED Status: Active Protocol: Document 01/19/18 14:45 AB (Rec: 01/19/18 16:24 AB [id number]) Physical Therapy Treatment Education Education Provided Precautions Safety Other Treatments Other Treatment Performed pt requires cues to recall back precautions and cues for techniques with mobility M7 PT-IP Assessment and Plan Start: 01/18/18 16:58 Freq: NEEDED Status: Active Protocol: Document 01/19/18 14:45 AB (Rec: 01/19/18 16:24 AB [id number]) PT Summary Assessment and Plan Potential Rehabilitation Potential Good Summary Impairments Pain ROM Strength Balance Cognition Bed Mobility Transfers Gait Activity Tolerance Progress Towards Goals Slow Progress due to Pain Slow Progress due to Activity Tolerance Assessment Summary pt progressing slowly but continues to have decrease activity tolerance and c/o pain affecting mobility. d/c plan depending on progress and level of assistance upon d/c. Goals Bed Mobility Goal Independent Transfer Goal Independent Gait Goal Independent Gait Distance 150 Days to Meet Goals 3 Frequency of Treatment Frequency Of Treatment Twice a Day Treatment Plan Physical Therapy Treatment Plan Bed Mobility Training Transfer Training Gait Training Therapeutic Exercise Balance Retraining Post Op Education Discharge Planning Hot or Cold Pack Neuromuscular Re-ed Coordination Retraining Manual Therapy Recommendations To Nursing Amount of Assist Needed 1 Person Assist Discharge Recommendations PT Discharge Recommendations Home with Assistance Home Health SNF Rehab Other Discharge Recommendations SNF vs home with assist/ homehealth Equipment Needed for Home Before FWW; shower chair Discharge
[2018-01-19] MEDS: SENNOSIDES 8.6 MG TABLET 17.2 MG PO (20:54)
[2018-01-20] MEDS: OXYCODONE IR 5 MG TABLET 10 MG PO ×7 (00:27→23:00)
[2018-01-20] MEDS: ACETAMINOPHEN 325 MG TABLET 975 MG PO ×3 (00:27→18:01)
[2018-01-20] MEDS: hydrOXYzine pamoate 25 MG CAPSULE PO ×5 (02:38→23:00)
[2018-01-20 03:30] VITALS: BP 111/63; PULSE 67; RESP 16; TEMP 36.9; O2SAT 99
--- NOTE | 2018-01-20 06:24 | PC.NURSE ---
pt A&OX3. LS:clear. pain managed w/tylenol, oxycodone and vistaril. Capnography device was keeping pt awake all night, it was beeping every 15 minutes. turned off capno device and place pt on CPOX, 2L, sats 96-98% while sleeping. end tidal CO2 46. Tarango removed 0600
--- NOTE | 2018-01-20 07:52 | PM.PNPO.1 ---
Subjective Date Patient Seen: 01/20/18 Interval history: Patient is seen bedside status post TLIF postop day 2. She is still having occasional episodes of low O2 saturation with numbers down into the 80s overnight. This is likely due to her sleep apnea. She is still in a lot of pain but has been up with therapy. She would like to go home tomorrow with home health. Exam Vital Signs (past 8 hours): - 01/20/18 03:30 Temperature 98.5 F Pulse Rate 67 Respiratory Rate 16 Blood Pressure 111/63 Pulse Oximetry 99 Oxygen Delivery Method Nasal Cannula Oxygen Flow Rate 2 Narrative Exam Narrative: Well-developed well-nourished no acute distress. Alert and oriented x3. Lumbar spine dressing is clean dry and intact with no signs of drainage. She is neurovascularly intact bilateral lower extremities calves are soft and compressible. She has full range of motion of the lower extremities. She is ambulating with a walker. Objective Labs Result Diagrams: 01/19/18 04:49 Assessment & Plan Post-op Postoperative Procedures Operation Date: 01/18/18 07:45 Actual Procedures Side Surgeon p L4-5, L5-S1 TLIF w/ Posterior Instrumentation Shay Garrett MD 1. Continue PT/OT 2. Continue pain management 3. D/c home with home health tomorrow Quality VTE Deep Vein Thrombosis/Pulmonary Embolism Present on Admission: No
[2018-01-20 08:00] VITALS: BP 107/59; PULSE 71; RESP 18; TEMP 36.8; O2SAT 96
[2018-01-20] MEDS: DOCUSATE 100 MG CAPSULE PO ×2 (08:59→19:53)
--- NOTE | 2018-01-20 09:50 | PT.IPTN ---
Current Diagnoses Spondylolisthesis, lumbar region (01/18/18) Other spondylosis with radiculopathy, lumbar region (01/18/18) Spinal stenosis, lumbar region without neurogenic claudication (01/18/18) Surgery Performed Operation Date: 01/18/18 07:45 Actual Procedures p L4-5, L5-S1 TLIF w/ Posterior Instrumentation - Shay Garrett MD Physical Therapy Treatment Note M2 PT-IP Current Condition Start: 01/18/18 16:58 Freq: NEEDED Status: Active Protocol: Document 01/19/18 10:10 AB (Rec: 01/19/18 12:52 AB [id number]) Physical Therapy Current Condition Current Condition Evaluation Date 01/19/18 Treatment Diagnosis s/p L4-5 L5S1 fusion and lami; difficulty in walking Onset Date 01/18/18 Precautions Lumbar Precautions Log Roll No Twisting Limit Bending Lifting Restriction of 10 lbs Gait Belt above Incisional Area M3 PT-IP Subjective Start: 01/18/18 16:58 Freq: NEEDED Status: Active Protocol: Document 01/20/18 09:50 AB (Rec: 01/20/18 12:14 AB [id number]) Subjective Physical Therapy Visit Type Type Treatment Note Visit Start Time 09:50 Visit Stop Time 10:06 Total Visit Minutes 16 Number of TECHNOLOGY OFFICER Visits 0 Physical Therapy Visit Comments Patient Comments pt c/o increase pain but stated that she will have pain no matter what. Therapy Pain Assessment Pain When Pain Assessed At Rest Pain Present Pain Present Pain Reported Location Lower Back Intensity 6 Scale Used Numeric (1 - 10) Pain Management Techniques Re-positioning Timing of Activity with Medications M4 PT-IP Mobility and Gait Start: 01/18/18 16:58 Freq: NEEDED Status: Active Protocol: Document 01/20/18 09:50 AB (Rec: 01/20/18 12:14 AB [id number]) PT-Bed Mobility Assessment Rolling Type of Rolling Log Rolling Level of Assist Standby Assistance Supine to Sit Supine to Sit Minimal Assistance PT-Transfer Assessment Sit to and From Stand Sit to and from Stand Moderate Assistance Maximum Assistance Use of Upper Extremities Equipment Transfer Assistive Device Gait Belt Front Wheeled Walker Orthotic/Prosthetic Devices or Brace: No Comments Mobility Comments pt completed sit <>stand x 5 reps with LOB x 2 with initial standing requiring mod to max A for controlled descent to bed/chair. pt educated on sit <>stand techniques again but inconsistent with carry over of task. Gait Assessment Gait Gait Assistance Required: Minimum Assistance 1 Person Assist Distance (Feet) (feet) 75 Able to Maintain Weight Bearing Status Yes During Gait Assistive Devices Assistive Device Gait Belt Front Wheeled Walker Orthotic/Prosthetic Devices or Brace: No Gait Deviations General Gait Pattern Antalgic Decreased Stride Length Decreased Feet Clearance Factors Limiting Gait Function Factors Limiting Gait Function Decreased Activity Tolerance Decreased Strength Difficulty Following Directions Pain Poor Balance Poor Safety Awareness Comments Gait Comments pt with heavy use of UE to FWW for support during standing and ambulation. M5 PT-IP Objective Assessments Start: 01/18/18 16:58 Freq: NEEDED Status: Active Protocol: Document 01/19/18 10:10 AB (Rec: 01/19/18 12:52 AB [id number]) Orientation Orientation/Cognition Level of Alertness Alert Orientation Name Age Birthday Month Date Year Day of Week Place Situation Gross Range of Motion Lower Extremity ROM Assessment Within Functional Limits Strength Lower Extremity Strength Assessment Within Functional Limits Muscle Tone Muscle Tone WNL Yes M6 PT-IP Treatment Start: 01/18/18 16:58 Freq: NEEDED Status: Active Protocol: Document 01/20/18 09:50 AB (Rec: 01/20/18 12:14 AB [id number]) Physical Therapy Treatment Education Education Provided Precautions Safety M7 PT-IP Assessment and Plan Start: 01/18/18 16:58 Freq: NEEDED Status: Active Protocol: Document 01/20/18 09:50 AB (Rec: 01/20/18 12:14 AB [id number]) PT Summary Assessment and Plan Potential Rehabilitation Potential Fair Summary Impairments Pain ROM Strength Balance Cognition Bed Mobility Transfers Gait Activity Tolerance Progress Towards Goals Slow Progress due to Pain Slow Progress due to Activity Tolerance Assessment Summary pt continues to require mod to max A with sit <>stand with ( +) LOB with initial standing. pt lives alone and will not have any assistance at home. pt will require SNF rehab at this time to improve strength and mobility. Goals Bed Mobility Goal Independent Transfer Goal Independent Gait Goal Independent Gait Distance 150 Days to Meet Goals 3 Frequency of Treatment Frequency Of Treatment Twice a Day Treatment Plan Physical Therapy Treatment Plan Bed Mobility Training Transfer Training Gait Training Therapeutic Exercise Balance Retraining Post Op Education Discharge Planning Hot or Cold Pack Neuromuscular Re-ed Coordination Retraining Manual Therapy Recommendations To Nursing Amount of Assist Needed 1 Person Assist Discharge Recommendations PT Discharge Recommendations SNF Rehab Equipment Needed for Home Before FWW; shower chair Discharge
--- NOTE | 2018-01-20 11:16 | OT.IP.TRT ---
Current Diagnoses Spondylolisthesis, lumbar region (01/18/18) Other spondylosis with radiculopathy, lumbar region (01/18/18) Spinal stenosis, lumbar region without neurogenic claudication (01/18/18) Surgery Performed Operation Date: 01/18/18 07:45 Actual Procedures p L4-5, L5-S1 TLIF w/ Posterior Instrumentation - Shay Garrett MD Occupational Therapy Treatment Note M2 OT-IP Current Condition Start: 01/19/18 15:47 Freq: Status: Active Protocol: Document 01/19/18 15:48 [facility] (Rec: 01/19/18 16:13 [facility] [id number]) Occupational Therapy Current Condition Current Condition Evaluation Date 01/19/18 Treatment Diagnosis Lumbar stenosis Diagnosis Onset Date 01/18/18 Post Operative Precautions Lumbar Precautions Log Roll No Twisting Limit Bending Lifting Restriction of 10 lbs Gait Belt above Incisional Area M3 OT- IP Subjective and Pain Start: 01/19/18 15:47 Freq: Status: Active Protocol: Document 01/20/18 11:07 [facility] (Rec: 01/20/18 11:16 [facility] [id number]) OT- Subjective Occupational Therapy Visit Type Type Treatment Note Visit Start Time 10:05 Visit Stop Time 10:20 Total Visit Minutes 15 Occupational Therapy Visit Comments Patient/Caregiver Goals Pt still not ready to go home and considering possible skilled rehab pending insurance approval. OT Pain Assessment Pain When Pain Assessed During Mobility Pain Present Pain Present Pain Reported Location Lower Back Intensity 7 Scale Used Numeric (1 - 10) Description Throbbing Pain Behaviors Facial Grimacing Management Techniques Apply Cold Re-positioning Timing of Activity with Medications M4 OT- IP ADL's Start: 01/19/18 15:47 Freq: Status: Active Protocol: Document 01/20/18 11:07 [facility] (Rec: 01/20/18 11:16 [facility] [id number]) OT ADL-Grooming General Evaluation Grooming Ability Standby Assistance Areas Needing Assistance Retrieving/Set-up of Grooming Items Comments OT Grooming Comments Set-up while sitting up. OT ADL-Dressing General Eval Lower Body Dressing Ability Standby Assistance Assistive Devices Dressing Assistive Devices Responder Sock Aid Comments OT Dressing Comments ABle to use sock aid to francesca/ doff socks in addition to assist with electrician machine shop. OT ADL-Bathing Bathing Type Bathing Type Sponge Bath General Evaluation Bathing Ability Minimal Assistance Areas Needing Assistance Retrieving/Setting Up Items Wash/Dry Back Comments OT Bathing Comments Pt states to get shower chair and that friend can be around when having to shower. M5 OT- IP IADL's Start: 01/19/18 15:47 Freq: Status: Active Protocol: Document 01/19/18 15:48 [facility] (Rec: 01/19/18 16:13 [facility] [id number]) OT-Instrumental Activities of Daily Living Meal Preparation Meal Preparation Comments Friends to assist. Head Worker Head Worker Comments Friends to assist. M6 OT- IP Functional Cognition Start: 01/19/18 15:47 Freq: Status: Active Protocol: Document 01/20/18 11:07 [facility] (Rec: 01/20/18 11:16 [facility] [id number]) Cognitive Factors Limiting Selfcare Function Cognitive Ability Level of Alertness Alert Patient Orientation Name Place Situation Attention Span Ability Capable of Focused Attention Capable of Sustained Attention Ability to Follow Commands Able to Follow One Step Commands Memory Description Short Term Impaired Safety Awareness Decreased Ability to Apply Precautions Problem Solving Ability Needs Assist to Identify Solutions Cognitive Comments Cognitive Assessment Comments Doing better to recall back precautions, still needing assist to help incorporate back precautions for Adl needs . M7 OT- IP Mobility and Balance Start: 01/19/18 15:47 Freq: Status: Active Protocol: Document 01/20/18 11:07 [facility] (Rec: 01/20/18 11:16 [facility] [id number]) OT-Transfer Assessment Sit to and From Stand Sit to and from Stand Standby Assistance Comments Mobility Comments Pt continues to need vc to sit to stand safety and technique . M8 OT- IP Objective Assessments Start: 01/19/18 15:47 Freq: Status: Active Protocol: Document 01/19/18 15:48 [facility] (Rec: 01/19/18 16:13 [facility] [id number]) OT Gross Range of Motion Upper Extremity Range of Motion Assessment Within Functional Limits M9 OT- IP Assessment and Plan Start: 01/19/18 15:47 Freq: Status: Active Protocol: Document 01/20/18 11:07 [facility] (Rec: 01/20/18 11:16 [facility] [id number]) OT Summary Assessment and Plan Potential Rehabilitation Potential Good Analytic Complexity at Evaluation Low Summary OT Impairments Balance Functional Cognition Functional Mobility Grooming Dressing Toileting Bathing Toilet Transfers Shower Transfers Progress Towards Goals Slow Progress due to Pain Slow Progress due to Activity Tolerance Slow Progress due to Cognition Assessment Summary Pt improving with ADl's and functional mobility however decreased safety awareness and still having trouble to incorporate back precautions for needs. Pt needing to improve with activity tolerance, safety awareness , and independence for ADL's/ Pt would benefit from short rehab stay prior to going home. Goals Days to Meet Goals 5 Frequency of Treatment Frequency Of Treatment Once a Day Treatment Plan OT Treatment Plan ADL Training Functional Cognition Training Functional Mobility Patient/Family Education Discharge Planning Other Treatment Recommendations and Next Stand for grooming, and Treatment Focus shower if appropriate. Discharge Recommendations OT Discharge Recommendations SNF Rehab
--- NOTE | 2018-01-20 11:42 | PC.NURSE ---
AM NOTE - alert, wearing co2 cannula however machine is off, per pt it beeped all night and was shut off earlier am, ra trial 88%, replaced with 2L and sat improved to 94%, later when up and mobilized to chair, 02 removed and sat remained 97%, pt using IS to 1999, pain 6 on scale 0/10 and given oxycodone 10mg, 25mg vistaril and 650mg tylenol with breakfast, after mobilized with phys therapy, pt up to bs and voided after earlier molina dc, barrier dsg to back removed, parallel jackson intact, some pink w/o drainage at margins, replaced with coversite dsg.
[2018-01-20 12:00] VITALS: BP 110/60; PULSE 68; RESP 18; TEMP 36.6
--- NOTE | 2018-01-20 12:39 | OT.IP.TRT ---
Current Diagnoses Spondylolisthesis, lumbar region (01/18/18) Other spondylosis with radiculopathy, lumbar region (01/18/18) Spinal stenosis, lumbar region without neurogenic claudication (01/18/18) Surgery Performed Operation Date: 01/18/18 07:45 Actual Procedures p L4-5, L5-S1 TLIF w/ Posterior Instrumentation - Shay Garrett MD Occupational Therapy Treatment Note M2 OT-IP Current Condition Start: 01/19/18 15:47 Freq: Status: Active Protocol: Document 01/19/18 15:48 [facility] (Rec: 01/19/18 16:13 [facility] [email or web address]) Occupational Therapy Current Condition Current Condition Evaluation Date 01/19/18 Treatment Diagnosis Lumbar stenosis Diagnosis Onset Date 01/18/18 Post Operative Precautions Lumbar Precautions Log Roll No Twisting Limit Bending Lifting Restriction of 10 lbs Gait Belt above Incisional Area M3 OT- IP Subjective and Pain Start: 01/19/18 15:47 Freq: Status: Active Protocol: Document 01/20/18 12:29 [facility] (Rec: 01/20/18 12:39 [facility] [id number]) OT- Subjective Occupational Therapy Visit Type Type Treatment Note Visit Start Time 12:10 Visit Stop Time 12:25 Total Visit Minutes 15 Occupational Therapy Visit Comments Patient/Caregiver Goals Pt insistent on going home versus skilled rehab. Pt states will call her friend and see if anyone can stay with her initially or come throughout the day to help. OT Pain Assessment Pain When Pain Assessed At Rest Pain Present Pain Present Denied Pain M4 OT- IP ADL's Start: 01/19/18 15:47 Freq: Status: Active Protocol: Document 01/20/18 11:07 [facility] (Rec: 01/20/18 11:16 [facility] [email or web address]) OT ADL-Grooming General Evaluation Grooming Ability Standby Assistance Areas Needing Assistance Retrieving/Set-up of Grooming Items Comments OT Grooming Comments Set-up while sitting up. OT ADL-Dressing General Eval Lower Body Dressing Ability Standby Assistance Assistive Devices Dressing Assistive Devices Painter Rough Sock Aid Comments OT Dressing Comments ABle to use sock aid to francesca/ doff socks in addition to assist with food beverage server. OT ADL-Bathing Bathing Type Bathing Type Sponge Bath General Evaluation Bathing Ability Minimal Assistance Areas Needing Assistance Retrieving/Setting Up Items Wash/Dry Back Comments OT Bathing Comments Pt states to get shower chair and that friend can be around when having to shower. M5 OT- IP IADL's Start: 01/19/18 15:47 Freq: Status: Active Protocol: Document 01/19/18 15:48 [facility] (Rec: 01/19/18 16:13 [facility] [email or web address]) OT-Instrumental Activities of Daily Living Meal Preparation Meal Preparation Comments Friends to assist. Wardrobe Assistant Wardrobe Assistant Comments Friends to assist. M6 OT- IP Functional Cognition Start: 01/19/18 15:47 Freq: Status: Active Protocol: Document 01/20/18 12:29 [facility] (Rec: 01/20/18 12:39 [facility] [email or web address]) Cognitive Factors Limiting Selfcare Function Cognitive Ability Ability to Follow Commands Able to Follow One Step Commands Memory Description Short Term Impaired Safety Awareness Decreased Ability to Apply Precautions Problem Solving Ability Needs Assist to Identify Solutions Cognitive Comments Cognitive Assessment Comments Per pt has Dyslexia and therefore state has trouble learing new skills especailly when requring positional needs and for math skills. Pt has good safety for home safety situations and problem solving for needs at home. M7 OT- IP Mobility and Balance Start: 01/19/18 15:47 Freq: Status: Active Protocol: Document 01/20/18 12:29 [facility] (Rec: 01/20/18 12:39 [facility] [id number]) OT- Bed Mobility Assessment Sit to Supine Sit to Supine Assist Standby Assistance Bedrails OT-Transfer Assessment Transfers Transfer Ability Standby Assistance Technique Transfer Destination Bed Transfer Technique Stand Step Pivot Devices Transfer Assistive Devices Gait Belt Front Wheeled Walker Comments Mobility Comments Doing better with back preautions and encourage pt to write them down on her phone. M8 OT- IP Objective Assessments Start: 01/19/18 15:47 Freq: Status: Active Protocol: Document 01/19/18 15:48 [facility] (Rec: 01/19/18 16:13 [facility] [id number]) OT Gross Range of Motion Upper Extremity Range of Motion Assessment Within Functional Limits M9 OT- IP Assessment and Plan Start: 01/19/18 15:47 Freq: Status: Active Protocol: Document 01/20/18 12:29 [facility] (Rec: 01/20/18 12:39 [facility] [id number]) OT Summary Assessment and Plan Summary Assessment Summary Saw pt second time due to assess pt's cognition and safety for home. Pt states will have friends come and assist her and also try to have someone stay with her initially. Pt still heavily relies on her BUE when up with FWW. Continue to suggest skilled rehab unless someone able to stay with pt to assist for needs. Goals Days to Meet Goals 5 Frequency of Treatment Frequency Of Treatment Twice a Day Treatment Plan Other Treatment Recommendations and Next Stand for grooming, and Treatment Focus shower if appropriate. Discharge Recommendations OT Discharge Recommendations SNF Rehab Home Equipment Needs FWW, shower chair
--- NOTE | 2018-01-20 15:00 | PT.IPTN ---
Current Diagnoses Spondylolisthesis, lumbar region (01/18/18) Other spondylosis with radiculopathy, lumbar region (01/18/18) Spinal stenosis, lumbar region without neurogenic claudication (01/18/18) Surgery Performed Operation Date: 01/18/18 07:45 Actual Procedures p L4-5, L5-S1 TLIF w/ Posterior Instrumentation - Shay Garrett MD Physical Therapy Treatment Note M2 PT-IP Current Condition Start: 01/18/18 16:58 Freq: NEEDED Status: Active Protocol: Document 01/19/18 10:10 AB (Rec: 01/19/18 12:52 AB [id number]) Physical Therapy Current Condition Current Condition Evaluation Date 01/19/18 Treatment Diagnosis s/p L4-5 L5S1 fusion and lami; difficulty in walking Onset Date 01/18/18 Precautions Lumbar Precautions Log Roll No Twisting Limit Bending Lifting Restriction of 10 lbs Gait Belt above Incisional Area M3 PT-IP Subjective Start: 01/18/18 16:58 Freq: NEEDED Status: Active Protocol: Document 01/20/18 15:00 AB (Rec: 01/20/18 15:48 AB [email or web address]) Subjective Physical Therapy Visit Type Type Treatment Note Visit Start Time 15:00 Visit Stop Time 15:21 Total Visit Minutes 21 Number of SUPERVISOR CABINETMAKER Visits 0 Therapy Pain Assessment Pain When Pain Assessed During Mobility Pain Present Pain Present Pain Reported Location Lower Back Intensity 6 Scale Used Numeric (1 - 10) Pain Management Techniques Apply Cold Timing of Activity with Medications M4 PT-IP Mobility and Gait Start: 01/18/18 16:58 Freq: NEEDED Status: Active Protocol: Document 01/20/18 15:00 AB (Rec: 01/20/18 15:48 AB [id number]) PT-Bed Mobility Assessment Supine to Sit Supine to Sit Standby Assistance Sit to Supine Sit to Supine Standby Assistance Scooting Scooting to Edge of Bed Standby Assistance PT-Transfer Assessment Sit to and From Stand Sit to and from Stand Minimal Assistance Equipment Transfer Assistive Device Gait Belt Front Wheeled Walker Gait Assessment Gait Gait Assistance Required: Minimum Assistance Distance (Feet) (feet) 40 Able to Maintain Weight Bearing Status Yes During Gait Assistive Devices Assistive Device Gait Belt Front Wheeled Walker Orthotic/Prosthetic Devices or Brace: No Gait Deviations General Gait Pattern Antalgic Decreased Stride Length Decreased Feet Clearance Factors Limiting Gait Function Factors Limiting Gait Function Decreased Activity Tolerance Decreased Strength Pain Poor Balance Poor Safety Awareness Comments Gait Comments pt stated that she was not able to get a FWW as the senior center is closed. will assess safety with 4WW tomorrow. Stair Climbing Assessment Comments Stair Climbing Comments pt refused to do stair climbing training today; stated that her pain is still alot but wants to do stairs tomorrow. M5 PT-IP Objective Assessments Start: 01/18/18 16:58 Freq: NEEDED Status: Active Protocol: Document 01/19/18 10:10 AB (Rec: 01/19/18 12:52 AB [id number]) Orientation Orientation/Cognition Level of Alertness Alert Orientation Name Age Birthday Month Date Year Day of Week Place Situation Gross Range of Motion Lower Extremity ROM Assessment Within Functional Limits Strength Lower Extremity Strength Assessment Within Functional Limits Muscle Tone Muscle Tone WNL Yes M6 PT-IP Treatment Start: 01/18/18 16:58 Freq: NEEDED Status: Active Protocol: Document 01/20/18 15:00 AB (Rec: 01/20/18 15:48 AB [email or web address]) Physical Therapy Treatment Education Education Provided Precautions Safety M7 PT-IP Assessment and Plan Start: 01/18/18 16:58 Freq: NEEDED Status: Active Protocol: Document 01/20/18 15:00 AB (Rec: 01/20/18 15:48 AB [email or web address]) PT Summary Assessment and Plan Potential Rehabilitation Potential Good Summary Impairments Pain ROM Strength Balance Cognition Bed Mobility Transfers Gait Activity Tolerance Progress Towards Goals Slow Progress due to Pain Assessment Summary pt progressing slowly with mobility but continues to require assist with ambulation . pt with increase guarding of UE and trunk during ambulation with c/o pain affecting ambulation with increase weight bearing on BUE . d/c plan depending on pt's progress but at this time will still require SNF rehab. Goals Bed Mobility Goal Independent Transfer Goal Independent Gait Goal Independent Gait Distance 150 Days to Meet Goals 3 Frequency of Treatment Frequency Of Treatment Twice a Day Treatment Plan Physical Therapy Treatment Plan Bed Mobility Training Transfer Training Gait Training Therapeutic Exercise Balance Retraining Post Op Education Discharge Planning Hot or Cold Pack Neuromuscular Re-ed Coordination Retraining Manual Therapy Other Recommendations and Next Treatment ambulation using 4WW Focus Recommendations To Nursing Amount of Assist Needed 1 Person Assist Discharge Recommendations PT Discharge Recommendations SNF Rehab Equipment Needed for Home Before FWW; shower chair Discharge
[2018-01-20 16:10] VITALS: BP 115/54; PULSE 75; RESP 20; TEMP 36.6; O2SAT 98
--- NOTE | 2018-01-20 16:31 | CM.IDA ---
Discharge Planning/Care Management CM Discharge Assessment Start: 01/20/18 16:26 Freq: Status: Active Protocol: Document 01/20/18 16:26 HANG (Rec: 01/20/18 16:31 HANG [id number]) Discharge Planning Assessment Assigned Wing Mailer Machine Operator GATO Thomason DPOA/Assigned Designee Name sister Lind Contact Information [phone], Advance Directives? No: Declines further information Advance Directives on File No History Provided By Patient Medical Record Prior Living Arrangements Apartment/Condo Household Members none Type of transporation used prior to Drives own vehicle admit Independent with ADL's Yes Is patient alert and oriented? Yes Comment Works fulltime at [employer] Patient/Family Preference Halfway Facility Comment Pt needs SNF d/t living alone and having a slow and painful recovery process s/p spinal surgery. This CONTRACT PREPARER unsure whether pt is agreeable to this plan, and/or if pt's insurance, Family Health Plan can be contacted over the Holiday weekend or will auth SNF. Barriers to Discharge Yes Comment PT: SNF, pt lives alone and does not have much family/ friend support Discharge Plan Home Transportation Arrangement Friends. Additional Comment Likely this pt will remain admitted until she can return home w/HH if insurance will cover HH Review Status In Process
[2018-01-20] MEDS: SENNOSIDES 8.6 MG TABLET 17.2 MG PO (19:53)
[2018-01-20 20:30] VITALS: BP 129/70; PULSE 78; RESP 12; TEMP 36.9; O2SAT 98
[2018-01-20 23:50] VITALS: BP 103/58; PULSE 71; RESP 16; TEMP 37.2; O2SAT 97
[2018-01-21] MEDS: ACETAMINOPHEN 325 MG TABLET 975 MG PO ×3 (00:28→16:57)
[2018-01-21] MEDS: OXYCODONE IR 5 MG TABLET 10 MG PO ×6 (02:34→23:42)
[2018-01-21] MEDS: hydrOXYzine pamoate 25 MG CAPSULE PO ×5 (04:27→23:59)
[2018-01-21 04:30] VITALS: BP 119/69; PULSE 69; RESP 16; TEMP 36.4; O2SAT 99
[2018-01-21 08:00] VITALS: BP 138/69; PULSE 76; RESP 18; TEMP 36.4; O2SAT 96
[2018-01-21] MEDS: DOCUSATE 100 MG CAPSULE PO ×2 (08:35→19:33)
[2018-01-21] MEDS: MAGNESIUM HYDROXIDE 30 ML UDC PO (08:37)
--- NOTE | 2018-01-21 09:38 | PT.IPTN ---
Current Diagnoses Spondylolisthesis, lumbar region (01/18/18) Other spondylosis with radiculopathy, lumbar region (01/18/18) Spinal stenosis, lumbar region without neurogenic claudication (01/18/18) Surgery Performed Operation Date: 01/18/18 07:45 Actual Procedures p L4-5, L5-S1 TLIF w/ Posterior Instrumentation - Shay Garrett MD Physical Therapy Treatment Note M2 PT-IP Current Condition Start: 01/18/18 16:58 Freq: NEEDED Status: Active Protocol: Document 01/19/18 10:10 AB (Rec: 01/19/18 12:52 AB [id number]) Physical Therapy Current Condition Current Condition Evaluation Date 01/19/18 Treatment Diagnosis s/p L4-5 L5S1 fusion and lami; difficulty in walking Onset Date 01/18/18 Precautions Lumbar Precautions Log Roll No Twisting Limit Bending Lifting Restriction of 10 lbs Gait Belt above Incisional Area M3 PT-IP Subjective Start: 01/18/18 16:58 Freq: NEEDED Status: Active Protocol: Document 01/21/18 09:38 AB (Rec: 01/21/18 12:25 AB [id number]) Subjective Physical Therapy Visit Type Type Treatment Note Visit Start Time 09:38 Visit Stop Time 10:03 Total Visit Minutes 25 Number of CONSUMER LENDING MANAGER Visits 0 Physical Therapy Visit Comments Patient Comments I am ready Therapy Pain Assessment Pain When Pain Assessed At Rest Pain Present Pain Present Pain Reported Location Lower Back Intensity 6 Pain Management Techniques Apply Cold Timing of Activity with Medications M4 PT-IP Mobility and Gait Start: 01/18/18 16:58 Freq: NEEDED Status: Active Protocol: Document 01/21/18 09:38 AB (Rec: 01/21/18 12:25 AB [id number]) PT-Bed Mobility Assessment Rolling Type of Rolling Log Rolling Level of Assist Standby Assistance Supine to Sit Supine to Sit Standby Assistance Scooting Scooting to Edge of Bed Standby Assistance PT-Transfer Assessment Sit to and From Stand Sit to and from Stand Standby Assistance Contact Guard Assistance Gait Assessment Gait Gait Assistance Required: Standby Assistance Contact Guard Assist Distance (Feet) (feet) 100 Able to Maintain Weight Bearing Status Yes During Gait Assistive Devices Assistive Device Gait Belt Front Wheeled Walker Orthotic/Prosthetic Devices or Brace: No Gait Deviations General Gait Pattern Antalgic Decreased Stride Length Decreased Feet Clearance Factors Limiting Gait Function Factors Limiting Gait Function Decreased Activity Tolerance Decreased Strength Pain Poor Balance Poor Safety Awareness Comments Gait Comments pt ambulated towards the stairs 100 ft using FWW SBA to occasional CGA and also ambulated ~ 30 ft going back towards her room using FWW SBA . Stair Climbing Assessment Evaluation Level of Assist On Stairs Contact Guard Assistance Devices Stair Climbing Assistive Devices Left Railing Right Railing Technique/Endurance Stair Climbing Direction Ascend and Descend Stair Climbing Technique Step to Step Number of Steps Climbed 3 Query Text: Stair Climbing Set # Repetitions (reps) 2 Comments Stair Climbing Comments pt initially completed stairs using bilateral rails and then using L rail ascending. Pt reuqired CGA in both instances with initial cues required but completed without towards end of training M5 PT-IP Objective Assessments Start: 01/18/18 16:58 Freq: NEEDED Status: Active Protocol: Document 01/19/18 10:10 AB (Rec: 01/19/18 12:52 AB [id number]) Orientation Orientation/Cognition Level of Alertness Alert Orientation Name Age Birthday Month Date Year Day of Week Place Situation Gross Range of Motion Lower Extremity ROM Assessment Within Functional Limits Strength Lower Extremity Strength Assessment Within Functional Limits Muscle Tone Muscle Tone WNL Yes M6 PT-IP Treatment Start: 01/18/18 16:58 Freq: NEEDED Status: Active Protocol: Document 01/21/18 09:38 AB (Rec: 01/21/18 12:25 AB [id number]) Physical Therapy Treatment Education Education Provided Precautions Safety M7 PT-IP Assessment and Plan Start: 01/18/18 16:58 Freq: NEEDED Status: Active Protocol: Document 01/21/18 09:38 AB (Rec: 01/21/18 12:25 AB [id number]) PT Summary Assessment and Plan Potential Rehabilitation Potential Good Summary Impairments Pain ROM Strength Balance Coordination Sensation Tone Cognition Bed Mobility Transfers Gait Activity Tolerance Progress Towards Goals Slow Progress due to Pain Assessment Summary pt progressing with mobility with increase stability with ambulation but still continues to have increase UE weightbearing on FWW. Pt does not want to go to SNF. Will continues to assess pt. Recommending homehealth services if pt is going home. Goals Bed Mobility Goal Independent Transfer Goal Independent Gait Goal Independent Gait Distance 150 Days to Meet Goals 3 Frequency of Treatment Frequency Of Treatment Twice a Day Treatment Plan Physical Therapy Treatment Plan Bed Mobility Training Transfer Training Gait Training Therapeutic Exercise Balance Retraining Post Op Education Discharge Planning Hot or Cold Pack Neuromuscular Re-ed Coordination Retraining Manual Therapy Other Recommendations and Next Treatment ambulation using 4WW Focus Recommendations To Nursing Amount of Assist Needed 1 Person Assist Discharge Recommendations PT Discharge Recommendations Home with Assistance Home Health SNF Rehab Equipment Needed for Home Before FWW; shower chair Discharge
[2018-01-21 11:00] VITALS: BP 124/6; PULSE 72; RESP 18; TEMP 36.5; O2SAT 97
--- NOTE | 2018-01-21 11:55 | PM.PNPO.1 ---
Subjective Date Patient Seen: 01/21/18 Time Patient Seen: 11:55 Interval history: The patient reports that she is doing better today. She was working with occupational therapy and has done pretty well on stairs. They did feel like she needs a little more work today before she would be completely safe at home. Exam Vital Signs (past 8 hours): - 01/21/18 04:30 01/21/18 08:00 01/21/18 11:00 Temperature 97.5 F L 97.5 F L 97.7 F Pulse Rate 69 76 72 Respiratory Rate 16 18 18 Blood Pressure 119/69 138/69 124/6 L Pulse Oximetry 99 96 97 Oxygen Delivery Method Nasal Cannula Oxygen Flow Rate 2 Skin Other: Dressing is dry and intact. Neuro Motor: muscle tone normal throughout and strength 5/5 throughout Sensory Exam: no sensory deficits noted Objective Labs Result Diagrams: 01/19/18 04:49 Assessment & Plan Post-op Postoperative Procedures Operation Date: 01/18/18 07:45 Actual Procedures Side Surgeon p L4-5, L5-S1 TLIF w/ Posterior Instrumentation Shay Garrett MD Postoperative plan narrative: Patient is progressing as expected after surgery. She does live alone and is not quite safe for discharge. She will continue with occupational therapy today. I will plan discharge her home tomorrow with home health physical therapy. Time Spent With Patient less than 15 minutes Quality VTE Deep Vein Thrombosis/Pulmonary Embolism Present on Admission: No
--- NOTE | 2018-01-21 12:03 | PC.NURSE ---
AM NOTE - awakens easily, states slept better last night, now ra 95%, hr 78, states back discomfort 6 on scale 0/10, repositioned for breakfast and given 0xycodone 10mg, 25mg vistaril and 975mg tylenol, discussed tylenol limitations with pt, no bm and is passing flatus, added mom and given prune juice this am.
[2018-01-21 15:35] VITALS: BP 94/50; PULSE 78; RESP 18; TEMP 36.9; O2SAT 99
--- NOTE | 2018-01-21 15:37 | PT.IPTN ---
Current Diagnoses Spondylolisthesis, lumbar region (01/18/18) Other spondylosis with radiculopathy, lumbar region (01/18/18) Spinal stenosis, lumbar region without neurogenic claudication (01/18/18) Surgery Performed Operation Date: 01/18/18 07:45 Actual Procedures p L4-5, L5-S1 TLIF w/ Posterior Instrumentation - Shay Garrett MD Physical Therapy Treatment Note M2 PT-IP Current Condition Start: 01/18/18 16:58 Freq: NEEDED Status: Active Protocol: Document 01/19/18 10:10 AB (Rec: 01/19/18 12:52 AB [id number]) Physical Therapy Current Condition Current Condition Evaluation Date 01/19/18 Treatment Diagnosis s/p L4-5 L5S1 fusion and lami; difficulty in walking Onset Date 01/18/18 Precautions Lumbar Precautions Log Roll No Twisting Limit Bending Lifting Restriction of 10 lbs Gait Belt above Incisional Area M3 PT-IP Subjective Start: 01/18/18 16:58 Freq: NEEDED Status: Active Protocol: Document 01/21/18 15:37 AB (Rec: 01/21/18 16:15 AB [id number]) Subjective Physical Therapy Visit Type Type Treatment Note Visit Start Time 15:17 Visit Stop Time 15:37 Total Visit Minutes 20 Number of REGISTERED RADIATION THERAPIST Visits 0 Physical Therapy Visit Comments Patient Comments pt requested to use the toilet Therapy Pain Assessment Pain When Pain Assessed At Rest Pain Present Pain Present Pain Reported Location Lower Back Intensity 6 Scale Used Numeric (1 - 10) Pain Management Techniques Apply Cold Re-positioning Timing of Activity with Medications M4 PT-IP Mobility and Gait Start: 01/18/18 16:58 Freq: NEEDED Status: Active Protocol: Document 01/21/18 15:37 AB (Rec: 01/21/18 16:15 AB [id number]) PT-Bed Mobility Assessment Rolling Type of Rolling Log Rolling Level of Assist Standby Assistance Supine to Sit Supine to Sit Standby Assistance Scooting Scooting to Edge of Bed Standby Assistance PT-Transfer Assessment Sit to and From Stand Sit to and from Stand Standby Assistance Use of Upper Extremities Equipment Transfer Assistive Device Gait Belt Front Wheeled Walker Orthotic/Prosthetic Devices or Brace: No Transfers Transfer Destination Toilet Transfer Technique pt ambulated to the toilet using FWW Transfer Ability Level of Assist Standby Assistance Gait Assessment Gait Gait Assistance Required: Standby Assistance Distance (Feet) (feet) 75 Assistive Devices Assistive Device Gait Belt 4 Wheeled Walker Gait Deviations General Gait Pattern Antalgic Decreased Stride Length Decreased Feet Clearance Factors Limiting Gait Function Factors Limiting Gait Function Decreased Activity Tolerance Decreased Strength Pain Poor Balance Comments Gait Comments assessed safety with use of 4WW. educated pt on how to use 4WW safely and management of brakes. pt was able to safely use 4WW with SBA. M5 PT-IP Objective Assessments Start: 01/18/18 16:58 Freq: NEEDED Status: Active Protocol: Document 01/19/18 10:10 AB (Rec: 01/19/18 12:52 AB [id number]) Orientation Orientation/Cognition Level of Alertness Alert Orientation Name Age Birthday Month Date Year Day of Week Place Situation Gross Range of Motion Lower Extremity ROM Assessment Within Functional Limits Strength Lower Extremity Strength Assessment Within Functional Limits Muscle Tone Muscle Tone WNL Yes M6 PT-IP Treatment Start: 01/18/18 16:58 Freq: NEEDED Status: Active Protocol: Document 01/21/18 15:37 AB (Rec: 01/21/18 16:15 AB [id number]) Physical Therapy Treatment Education Education Provided Safety M7 PT-IP Assessment and Plan Start: 01/18/18 16:58 Freq: NEEDED Status: Active Protocol: Document 01/21/18 15:37 AB (Rec: 01/21/18 16:15 AB [id number]) PT Summary Assessment and Plan Potential Rehabilitation Potential Good Summary Impairments Pain ROM Strength Balance Bed Mobility Transfers Gait Activity Tolerance Progress Towards Goals Progressing Toward Goals Assessment Summary pt progressing well with mobility and requiring SBA with use of 4WW. pt may go home with assist and home health services when medically stable. Goals Bed Mobility Goal Independent Transfer Goal Independent Gait Goal Independent Gait Distance 150 Days to Meet Goals 3 Frequency of Treatment Frequency Of Treatment Twice a Day Treatment Plan Physical Therapy Treatment Plan Bed Mobility Training Transfer Training Gait Training Therapeutic Exercise Balance Retraining Post Op Education Discharge Planning Hot or Cold Pack Neuromuscular Re-ed Coordination Retraining Manual Therapy Other Recommendations and Next Treatment ambulation using 4WW Focus Recommendations To Nursing Amount of Assist Needed 1 Person Assist Discharge Recommendations PT Discharge Recommendations Home with Assistance Home Health Equipment Needed for Home Before FWW; shower chair Discharge
[2018-01-21] MEDS: SENNOSIDES 8.6 MG TABLET 17.2 MG PO (19:32)
[2018-01-21 20:22] VITALS: BP 106/58; PULSE 79; RESP 18; TEMP 37.2; O2SAT 97
[2018-01-21 23:05] VITALS: BP 112/63; PULSE 78; RESP 16; TEMP 36.4; O2SAT 99
[2018-01-22 04:00] VITALS: BP 117/64; PULSE 74; RESP 16; TEMP 36.8; O2SAT 99
[2018-01-22] MEDS: OXYCODONE IR 5 MG TABLET 10 MG PO ×3 (04:04→12:07)
[2018-01-22] MEDS: hydrOXYzine pamoate 25 MG CAPSULE PO ×3 (04:04→12:07)
[2018-01-22] MEDS: DOCUSATE 100 MG CAPSULE PO (07:53)
[2018-01-22 07:59] VITALS: BP 117/75; PULSE 76; RESP 16; TEMP 36.4; O2SAT 100
[2018-01-22 08:01] VITALS: O2SAT 98
--- NOTE | 2018-01-22 08:05 | PC.NURSE ---
Addendum entered by Demetrice Pathak R.N. 01/22/18 12:59: reviewed d/c instructions with pt at bedside. reviewed instructions, meds with scripts given, s/sx infection, s/sx of stroke, answered all questions and concerns. left with all personal belongings. friend at bedside, housing management officer assisted out to car via w/c. Original Note: DAY SHIFT PT IS A&O ABLE TO MAKE NEEDS KNOWN. RATES PAIN 6/10 TO BACK MEDICATED PER EMAR AND ASSISTED WITH REPOSITIONING IN BED. PT HAS NUMBNESS TO BLE DENIES ANY CHANGE SINCE PRIOR TO SURGERY. CALL LIGHT WITHIN REACH.
--- NOTE | 2018-01-22 10:31 | PT.IPTN ---
Current Diagnoses Spondylolisthesis, lumbar region (01/18/18) Other spondylosis with radiculopathy, lumbar region (01/18/18) Spinal stenosis, lumbar region without neurogenic claudication (01/18/18) Surgery Performed Operation Date: 01/18/18 07:45 Actual Procedures p L4-5, L5-S1 TLIF w/ Posterior Instrumentation - Shay Garrett MD Physical Therapy Treatment Note M2 PT-IP Current Condition Start: 01/18/18 16:58 Freq: NEEDED Status: Active Protocol: Document 01/19/18 10:10 AB (Rec: 01/19/18 12:52 AB [id number]) Physical Therapy Current Condition Current Condition Evaluation Date 01/19/18 Treatment Diagnosis s/p L4-5 L5S1 fusion and lami; difficulty in walking Onset Date 01/18/18 Precautions Lumbar Precautions Log Roll No Twisting Limit Bending Lifting Restriction of 10 lbs Gait Belt above Incisional Area M3 PT-IP Subjective Start: 01/18/18 16:58 Freq: NEEDED Status: Active Protocol: Document 01/22/18 08:50 CLB (Rec: 01/22/18 10:31 CLB [id number]) Subjective Physical Therapy Visit Type Type Treatment Note Visit Start Time 08:50 Visit Stop Time 09:20 Total Visit Minutes 30 Number of LEAD PHARMACY TECHNICIAN Visits 1 Physical Therapy Visit Comments Patient Comments pt requested to use the toilet Therapy Pain Assessment Pain When Pain Assessed During Mobility Pain Present Pain Present Pain Reported Location Lower Back Intensity 5 Pain Management Techniques Apply Cold Re-positioning Timing of Activity with Medications M4 PT-IP Mobility and Gait Start: 01/18/18 16:58 Freq: NEEDED Status: Active Protocol: Document 01/22/18 08:50 CLB (Rec: 01/22/18 10:31 CLB [id number]) PT-Bed Mobility Assessment Rolling Type of Rolling Log Rolling Level of Assist Standby Assistance Supine to Sit Supine to Sit Standby Assistance Sit to Supine Sit to Supine Standby Assistance Scooting Scooting to Edge of Bed Standby Assistance PT-Transfer Assessment Sit to and From Stand Sit to and from Stand Standby Assistance Use of Upper Extremities Equipment Transfer Assistive Device Gait Belt 4 Wheeled Walker Transfers Transfer Destination Chair Toilet Transfer Technique pt ambulated using FWW Transfer Ability Level of Assist Standby Assistance Comments Mobility Comments Pt improving with log roll in and out of bed reporting less pain during mobility. Gait Assessment Gait Gait Assistance Required: Standby Assistance Distance (Feet) (feet) 140 Able to Maintain Weight Bearing Status Yes During Gait Assistive Devices Assistive Device Gait Belt 4 Wheeled Walker Gait Deviations General Gait Pattern Antalgic Decreased Stride Length Decreased Feet Clearance Factors Limiting Gait Function Factors Limiting Gait Function Decreased Activity Tolerance Decreased Strength Pain Comments Gait Comments Pt increased ambulation to ~ 140ft with two standing rest breaks due to increased pain. Stair Climbing Assessment Comments Stair Climbing Comments Pt respectfully refused additional stair training but was able to verbally recall proper sequence for stair climbing. M5 PT-IP Objective Assessments Start: 01/18/18 16:58 Freq: NEEDED Status: Active Protocol: Document 01/19/18 10:10 AB (Rec: 01/19/18 12:52 AB [id number]) Orientation Orientation/Cognition Level of Alertness Alert Orientation Name Age Birthday Month Date Year Day of Week Place Situation Gross Range of Motion Lower Extremity ROM Assessment Within Functional Limits Strength Lower Extremity Strength Assessment Within Functional Limits Muscle Tone Muscle Tone WNL Yes M6 PT-IP Treatment Start: 01/18/18 16:58 Freq: NEEDED Status: Active Protocol: Document 01/21/18 15:37 AB (Rec: 01/21/18 16:15 AB [id number]) Physical Therapy Treatment Education Education Provided Safety M7 PT-IP Assessment and Plan Start: 01/18/18 16:58 Freq: NEEDED Status: Active Protocol: Document 01/22/18 08:50 CLB (Rec: 01/22/18 10:31 CLB [id number]) PT Summary Assessment and Plan Potential Rehabilitation Potential Good Summary Impairments Pain ROM Strength Balance Bed Mobility Transfers Gait Activity Tolerance Progress Towards Goals Progressing Toward Goals Assessment Summary Pt increased ambulation to ~ 140ft with two standing rest breaks due to increased pain. Pt safely manages mobility with 4WW. Pt recall 3/3 precautions. Pt seems able to d/c home with assist when medically stable. Goals Bed Mobility Goal Independent Transfer Goal Independent Gait Goal Independent Frequency of Treatment Frequency Of Treatment Twice a Day Treatment Plan Physical Therapy Treatment Plan Bed Mobility Training Transfer Training Gait Training Therapeutic Exercise Balance Retraining Post Op Education Discharge Planning Hot or Cold Pack Neuromuscular Re-ed Coordination Retraining Manual Therapy Other Recommendations and Next Treatment ambulation using 4WW Focus Recommendations To Nursing Amount of Assist Needed 1 Person Assist Discharge Recommendations PT Discharge Recommendations Home with Assistance Home Health Equipment Needed for Home Before FWW; shower chair Discharge
--- NOTE | 2018-01-22 10:55 | P.DS_ITS ---
History of Present Illness Date Patient Seen: 01/22/18 Time Patient Seen: 10:53 Chief complaint: [id number] Narrative: Patient is a 62-year-old woman who was admitted for lumbar spine surgery by Dr. Garrett on the day of admission. Discharge Providers Date of admission: 01/18/18 06:22 Primary care physician: Sam Han MD Consults: 01/18/18 12:36 Consult to Occupational Therapy Evaluate & Treat Comment: Physician Instructions: Evaluate and treat Consult to Physical Therapy Evaluate & Treat Comment: Physician Instructions: Evaluate and Treat 01/18/18 12:38 Consult to Respiratory Therapy Evaluate & Treat Comment: Physician Instructions: Evaluate and treat 01/19/18 10:50 Consult to Home Health Routine Comment: Reason For Exam: s/p TLIF, patient lives alone. Discharge provider: John Daniels MD Summary Discharge Diagnosis: Degenerative disc disease Spinal stenosis Hospital Course: Patient was admitted to the hospital and underwent lumbar surgery by Dr. Garrett. She progressed well overall with occupational therapy. Pain was well controlled. She is discharged to home today. She will be set up for home health services. Status at Discharge Functional status at discharge: uses cane/walker Overall status at discharge: patient is progressing back to baseline Time Spent with Patient Less than 30 minutes Exam Vital Signs (past 8 hours): - 01/22/18 04:00 01/22/18 07:59 01/22/18 08:01 Temperature 98.2 F 97.6 F Pulse Rate 74 76 Respiratory Rate 16 16 Blood Pressure 117/64 117/75 Pulse Oximetry 99 100 98 Oxygen Delivery Method Room Air Oxygen Flow Rate 2 Skin Other: Dressing is dry and intact. Neuro Other: Lower extremities are neurovascularly intact. Strength is grossly 5/5. Objective Labs Result Diagrams: 01/19/18 04:49 Discharge Plan Discharge Plan Patient Disposition: Home Health Service Discharge comment: Patient is doing well with occupational therapy and is ready for discharge. She will be set up for home health services. Discharge Med Rec/Prescriptions Prescriptions: New docusate sodium 100 mg Capsule 100 mg PO BID Qty: 0 RF: 0 hydroxyzine pamoate 25 mg Capsule 25 mg PO Q4HR PRN (Reason: Nausea And Vomiting) Qty: 50 RF: 0 oxycodone 10 mg tablet 10 mg PO Q4-6H PRN (Reason: Pain, Severe (7-10)) Qty: 40 RF: 0 methocarbamol 500 mg tablet 500 mg PO QID Qty: 60 RF: 0 oxycodone 10 mg tablet 10 mg PO Q4-6H PRN (Reason: pain) Qty: 60 RF: 0 Continue nadolol [Corgard] 20 MG tablet 20 mg PO BEDTIME Qty: 0 RF: 0 losartan 50 mg Tablet 50 mg PO QAM RF: 0 methocarbamol 500 mg Tablet 750 mg PO QID PRN (Reason: muscle spasms) RF: 0 Discontinued acetaminophen [Tylenol Extra Strength] 500 mg Tablet 1,000 mg PO Q6H PRN (Reason: pain) RF: 0 naproxen sodium [Aleve] 220 mg Capsule 1 - 2 tab PO DAILY PRN (Reason: pain) RF: 0 Follow up/Referrals: Sam Han MD [Primary Care Provider] - Provider Discharge Instructions Diet: Diet as Tolerated Activity: Weightbearing as tolerated, use walker to ambulate, no bending/ twisting, no lifting greater than 10 lbs. Cold/Heat Therapy: Apply ice to incision site for 20 minutes at a time at least hourly while awake Skin/Wound/Dressing Care Report to your healthcare provider any signs of infection, such as:: chills, fever, night sweats, increased pain and unusual drainage Dressing: Keep dressing clean, dry, and intact. May shower with dressing on but no bathing or soaking. Visit Report/Discharge Packet Instructions: Oxycodone, Hydroxyzine, DI for Transforaminal Lumbar Interbody Fusion Visit Report Forms: Stroke Signs & Symptoms Discharge Data Primary Care Provider: Sam Han Attending Provider: Shay Garrett Admit Date/Time: 01/18/18 06:22 Quality VTE Deep Vein Thrombosis/Pulmonary Embolism Present on Admission: No
--- NOTE | 2018-01-22 11:05 | OT.IP.TRT ---
Current Diagnoses Spondylolisthesis, lumbar region (01/18/18) Other spondylosis with radiculopathy, lumbar region (01/18/18) Spinal stenosis, lumbar region without neurogenic claudication (01/18/18) Surgery Performed Operation Date: 01/18/18 07:45 Actual Procedures p L4-5, L5-S1 TLIF w/ Posterior Instrumentation - Shay Garrett MD Occupational Therapy Treatment Note M2 OT-IP Current Condition Start: 01/19/18 15:47 Freq: Status: Active Protocol: Document 01/19/18 15:48 [facility] (Rec: 01/19/18 16:13 [facility] [id number]) Occupational Therapy Current Condition Current Condition Evaluation Date 01/19/18 Treatment Diagnosis Lumbar stenosis Diagnosis Onset Date 01/18/18 Post Operative Precautions Lumbar Precautions Log Roll No Twisting Limit Bending Lifting Restriction of 10 lbs Gait Belt above Incisional Area M3 OT- IP Subjective and Pain Start: 01/19/18 15:47 Freq: Status: Active Protocol: Document 01/22/18 10:58 [facility] (Rec: 01/22/18 11:05 [facility] [id number]) OT- Subjective Occupational Therapy Visit Type Type Treatment Note Visit Start Time 10:05 Visit Stop Time 10:35 Total Visit Minutes 30 Occupational Therapy Visit Comments Patient/Caregiver Goals Pt wanting to shower. OT Pain Assessment Pain When Pain Assessed At Rest Pain Present Pain Present Denied Pain M4 OT- IP ADL's Start: 01/19/18 15:47 Freq: Status: Active Protocol: Document 01/22/18 10:58 [facility] (Rec: 01/22/18 11:05 [facility] [id number]) OT ADL-Dressing General Eval Upper Body Dressing Ability Independent Lower Body Dressing Ability Standby Assistance Assistive Devices Dressing Assistive Devices Computer Education Teacher Sock Aid Comments OT Dressing Comments VC to have pt sit to francesca pants otherwise able to showe good safety for all. OT ADL-Bathing Bathing Type Bathing Type Shower General Evaluation Bathing Ability Standby Assistance Areas Needing Assistance Retrieving/Setting Up Items Comments OT Bathing Comments Pt able to stand for shower with good safety, pt able to get shower chair for home use. M5 OT- IP IADL's Start: 01/19/18 15:47 Freq: Status: Active Protocol: Document 01/19/18 15:48 [facility] (Rec: 01/19/18 16:13 [facility] [id number]) OT-Instrumental Activities of Daily Living Meal Preparation Meal Preparation Comments Friends to assist. Pattern Maker Programer Pattern Maker Programer Comments Friends to assist. M6 OT- IP Functional Cognition Start: 01/19/18 15:47 Freq: Status: Active Protocol: Document 01/22/18 10:58 [facility] (Rec: 01/22/18 11:05 [facility] [id number]) Cognitive Factors Limiting Selfcare Function Cognitive Ability Level of Alertness Alert Patient Orientation Name Age Birthday Month Date Year Day of Week Place Situation Attention Span Ability Capable of Focused Attention Capable of Sustained Attention Ability to Follow Commands Able to Follow Multi-Step Commands Memory Description No Deficits Noted Safety Awareness Underestimates Need for Assistance Problem Solving Ability No deficits Noted Cognitive Comments Cognitive Assessment Comments Pt doing well today and mostly independent for needs, supervision due to set-up and occasional vc for safety. M7 OT- IP Mobility and Balance Start: 01/19/18 15:47 Freq: Status: Active Protocol: Document 01/22/18 10:58 [facility] (Rec: 01/22/18 11:05 [facility] [id number]) OT- Bed Mobility Assessment Rolling Type of Rolling Roll to Left Supine to Sit Supine to Sit Assist Independent Sit to Supine Sit to Supine Assist Independent OT-Transfer Assessment Sit to and From Stand Sit to and from Stand Independent Transfers Transfer Ability Independent Technique Transfer Destination Bed Shower Stall Transfer Technique Stand Step Pivot Devices Transfer Assistive Devices Front Wheeled Walker Comments Mobility Comments Much improved and able to show good safety. OT- Balance Assessment Sitting Balance and Reactions Static Sitting Balance Ability Normal Dynamic Sitting Balance Ability Normal Standing Balance and Reactions Static Standing Balance Ability Good Dynamic Standing Balance Ability Fair M8 OT- IP Objective Assessments Start: 01/19/18 15:47 Freq: Status: Active Protocol: Document 01/19/18 15:48 [facility] (Rec: 01/19/18 16:13 [facility] [id number]) OT Gross Range of Motion Upper Extremity Range of Motion Assessment Within Functional Limits M9 OT- IP Assessment and Plan Start: 01/19/18 15:47 Freq: Status: Active Protocol: Document 01/22/18 10:58 [facility] (Rec: 01/22/18 11:05 [facility] [id number]) OT Summary Assessment and Plan Potential Rehabilitation Potential Excellent Analytic Complexity at Evaluation Low Summary Assessment Summary Pt looking to go home today and friends to assist. OT home health recommended as pt lives alone and would be beneficial to go over safety for IADL needs at home. Goals Days to Meet Goals 1 Frequency of Treatment Frequency Of Treatment Once a Day Treatment Plan OT Treatment Plan Patient/Family Education Discharge Planning Discharge Recommendations OT Discharge Recommendations Home with Assistance Home Health
--- NOTE | 2018-01-22 11:52 | CM.DPC ---
DCP/continued: Received verbal referral from RN indicating that MD would like to d/c patient home today. Order obtained for RN/OT at home. DATA WAREHOUSE MANAGER confirmed with Dr. Daniels. Met with patient explained CM/SW role. Patient reports that she is very comfortable going home. Therapy has seen patient and cleared her to d/c home. Patient notified that MD ordered home health. Patient aware and agreeable and has no preference in HH agencies. Patient aware that CM department cannot confirm contracted HH agency on holiday. DATA WAREHOUSE MANAGER placed call to Jennifer at [facility] cell# [phone]. Jennifer agreeable to accept referral and if they are not contracted [facility] to coordinate alternative arrangements. Faxed orders, F2F, h&p, and d/c summary to attn: Jennifer at [phone]. Patient provided with name/number of agency and aware that they will need to confirm contract on 01-23-18. P: Home today. [facility] arranged and they will follow up with insurance re: contract on next business day. GATO Rao
== END 2018-01-22 13:01 | disposition home health service (06) | DRG 455 ==
LOC: AC 13:29 → ICU 01-19 13:59 → AC 01-20 07:52 → ICU 11-14 07:47
PROVIDERS: Admitting Provider Orthopaedic Surgery Orthopaedic Surgery of the Spine; Family Provider Family Medicine; PCP Family Medicine; Visit Provider Orthopaedic Surgery Orthopaedic Surgery of the Spine
PROC: 0SG00AJ Fusion of Lumbar Vertebral Joint with Interbody Fusion Device, Posterior Approach, Anterior Column, Open Approach (ICD-10-PCS; principal; 2018-01-18 07:45)
DX: M48.061 Spinal stenosis, lumbar region without neurogenic claudication (principal); M43.17 Spondylolisthesis, lumbosacral region; M47.26 Other spondylosis with radiculopathy, lumbar region; G47.30 Sleep apnea, unspecified; I10 Essential (primary) hypertension; K21.9 Gastro-esophageal reflux disease without esophagitis; G25.81 Restless legs syndrome; G93.89 Other specified disorders of brain; R09.02 Hypoxemia; T40.2X5A Adverse effect of other opioids, initial encounter
CPT/HCPCS: 36415; 72100; 76001; 85014; 85018; 94762; 94770; 97116; 97127; 97162; 97165; 97530; 97535; C1776; C9290; J0131; J0330; J0690; J1100; J1170; J2060; J2250; J2310; J2405; J2704; J3010; J3410; J8501

== ENCOUNTER 2018-12-16 09:18 | Emergency (ER) | payer MEDICARE, OTHER, SELFPAY ==
[2018-01-18 15:40] VITALS: BMI 29.9
[2018-12-16 09:26] VITALS: BP 174/88; PULSE 79; RESP 18; TEMP 36.8; O2SAT 100; BMI 31.1
--- NOTE | 2018-12-16 10:24 | ED_ITS ---
HPI - Extremity Problem General Chief complaint: Extremity Problem,Nontraumatic Stated complaint: Pain in neck and shoulder Time Seen by Provider: 12/16/18 09:42 Source: patient Mode of arrival: ambulatory Limitations: no limitations History of Present Illness HPI Narrative: Patient comes to the emergency department complaining of ongoing right shoulder and neck muscle spasm and pain for the last approximately 4 w eeks. Patient states she did not have any distinct injury, but was under lot of stress at the time this started. She states she woke up 1 morning and found that she had pain in her right shoulder and trapezius muscle distribution extending into her neck. She states it felt like a spasm. She states she has tried methocarbamol, Advil, and Tylenol, as well as lidocaine patches and heat patches, states that nothing seems to have helped. Patient states she finds herself tensing her shoulder up because it hurts. She has seen her primary care physician, who prescribed the methocarbamol, and that her primary doctor says he will order MRI if her symptoms do not blow over in the next couple of weeks. Patient states that she has no history of neck or shoulder problems previously. She states that she has not had any numbness or tingling or weakness in her hand. She denies any other symptoms. No chest pain or shortness of breath. No nausea. No abdominal pain. No dizziness. No trauma. Patient states she is having trouble sleeping at night because of the pain. She is mainly here for symptomatic relief. Related Data Home Medications Medication Instructions Recorded Confirmed nadolol [Corgard] 20 mg PO BEDTIME #0 07/15/16 12/16/18 losartan 50 mg PO QAM 01/01/18 12/16/18 methocarbamol 750 mg PO QID PRN 01/01/18 12/16/18 Previous Rx's Medication Instructions Recorded hydrocodone-acetaminophen 1 tab PO Q4H PRN #20 tab 12/16/18 Allergies Allergy/AdvReac Type Severity Reaction Status Date / Time codeine Allergy Mild Hives Verified 12/16/18 10:08 Review of Systems Constitutional Denies chills, Denies fever(s), Denies lethargy and Denies weakness Eyes Denies change in vision, Denies eye discharge, Denies irritation and Denies loss of vision ENT Ears, Nose, Mouth, and Throat: Denies change in voice, Denies neck pain and Denies sore throat Cardiovascular Denies chest pain, Denies irregular heart rhythm, Denies lightheadedness, Denies palpitations, Denies dyspnea, Denies dyspnea on exertion and Denies orthopnea Respiratory Denies cough, Denies dyspnea, Denies dyspnea on exertion and Denies wheezing Gastrointestinal Gastrointestinal: Denies abdominal pain, Denies change in bowel habits, Denies diarrhea, Denies nausea and Denies vomiting Genitourinary Denies hematuria, Denies flank pain, Denies urinary incontinence and Denies urinary urgency Musculoskeletal Denies neck pain Comments: Right shoulder and neck pain Integumentary/Breasts Denies pruritus, Denies erythema, Denies rash and Denies wounds Neurologic Denies confusion, Denies loss of vision and Denies weakness Psychiatric Denies anxiety, Denies confusion, Denies depression, Denies homicidal ideation and Denies suicidal ideation Endocrine Denies palpitations Hematologic/Lymphatic Denies easy bruising Allergic/Immunologic Denies wheezing PFSH Medical History Bilateral cataracts (Acute) Chronic pain (Acute) Colon polyps (Acute) Endometriosis (Acute) GERD (gastroesophageal reflux disease) (Acute) Genital herpes simplex (Acute) Headache, migraine (Acute) Hemorrhoids (Acute) Hyperlipidemia (Acute) Osteoarthritis (Acute) Polio (Acute) Restless leg syndrome (Acute) Sciatica (Acute) Sleep apnea (Acute) Tinnitus (Acute) Surgical History Hx of laparoscopy (Acute) Hx of tonsillectomy (Acute) Status post breast lumpectomy Status post cholecystectomy Status post hysterectomy Family History (Updated 07/18/16 @ 00:00 by Conversion Provider) Father Stroke Alzheimer disease Grandfather Diabetes mellitus Heart disease Stroke Mother Dementia Mental health problem Sjogren's disease Skin cancer Cataract Social History household members: none Smoking Status: Never smoker Family History (Updated 07/18/16 @ 00:00 by Conversion Provider) Father Stroke Alzheimer disease Grandfather Diabetes mellitus Heart disease Stroke Mother Dementia Mental health problem Sjogren's disease Skin cancer Cataract Social History household members: none Smoking Status: Never smoker Exam Initial Vital Signs Initial Vital Signs: Vital Signs Temperature 98.2 F 12/16/18 09:26 Pulse Rate 79 12/16/18 09:26 Respiratory Rate 18 12/16/18 09:26 Blood Pressure 174/88 H 12/16/18 09:26 Pulse Oximetry 100 12/16/18 09:26 Const General: cooperative and well developed Nutritional Appearance: well nourished Orientation: alert, awake, oriented x3 and not confused [facility] Head: normocephalic and atraumatic Ears: external ears normal and TM's normal bilaterally Nose: external nose normal and No nasal discharge Face and sinus: sinuses nontender, face symmetric, no sinus tenderness and No dry mucous membranes Mouth: oral mucosae normal and moist mucous membranes Teeth and gingiva: dentition normal Throat: tonsils normal and uvula midline Eyes General: appearance normal, both eyes and all related structures Eyelids: eyelids normal Conjunctivae: conjunctivae normal Sclera: sclerae normal Pupils: PERRL EOM: EOM intact bilaterally Neck Neck: normal visual inspection, trachea midline, No lymphadenopathy, No midline deformity and No JVD Lymphatic: No lymphedema Chest Chest: normal inspection of the chest Resp Effort & Inspection: normal respiratory effort, able to speak in complete sentences, no respiratory distress and no use of accessory muscles Auscultation: clear to auscultation bilaterally, no rales, no rhonchi and no wheezes Cardio Rate: regular rate Rhythm: regular rhythm Heart Sounds: no click, no gallops, no murmurs and no rubs Pulses: normal peripheral pulses GI Inspection: non-distended Palpation: soft, no hepatosplenomegaly, No guarding, No pulsatile mass and No tender Auscultation: normal bowel sounds Back/Spine/Pelvis Back: No CVA tenderness Cervical Spine: cervical ROM normal and No pain with cervical ROM Thoracic/Lumbar Spine: thoracic and lumbar spine normal to inspection Other: Patient has right-sided cervical paraspinal musculature tenderness extending over the entire trapezius distribution to her shoulder. Skin General: no rashes or lesions noted, No jaundice and No petechiae Neuro General: alert, oriented x3, gait normal and no focal motor deficits Speech: speech normal Extrem General: full ROM, no pedal edema and no calf tenderness Other: No right shoulder deformity or point tenderness. Trapezius muscle tende rness noted, as noted above. Mild spasm noted. Psych Appearance: well kempt Mental Status: mental status grossly normal Attitude: cooperative Thought Content: normal and suicidality Judgment: judgment good Course Course Narrative: I discussed with the patient that the best diagnostic test at this point would most likely be MRI, to determine if there is an underlying cause of her ongoing muscle spasm. At this point, patient may need a stronger analgesic to supplement which she is taking. I will write her prescription for this. We have discussed that patient should not take Tylenol at the same time as she is taking the prescription analgesics, which will be Vicodin, as the Vicodin also contains Tylenol. Patient expresses understanding. Vital Signs - 8 hr 12/16/18 09:26 Temperature 98.2 F Pulse Rate 79 Respiratory Rate 18 Blood Pressure 174/88 H Pulse Oximetry 100 MDM - Extremity (Nontraumatic) Medical Records Attestation: I reviewed the patient's medical records. Discharge Plan Departure Patient Disposition: Home Clinical Impression: Muscle spasm Instructions: DI for Muscle Spasm Prescriptions: New hydrocodone-acetaminophen 5-325 mg tablet 1 tab PO Q4H PRN (Reason: pain) Qty: 20 RF: 0 No Action nadolol [Corgard] 20 MG tablet 20 mg PO BEDTIME Qty: 0 RF: 0 losartan 50 mg Tablet 50 mg PO QAM RF: 0 methocarbamol 500 mg Tablet 750 mg PO QID PRN (Reason: muscle spasms) RF: 0 Referrals: Sam Han MD [Primary Care Provider] -
[2018-12-16 10:34] VITALS: BP 137/89; PULSE 73; O2SAT 99
== END 2018-12-16 10:36 | disposition home or self-care (01) ==
PROVIDERS: Emergency Provider Emergency Medicine; PCP Family Medicine
DX: M62.838 Other muscle spasm (principal)
CPT/HCPCS: 99282; 99283

== ENCOUNTER → 2020-12-25 13:43 | Outpatient (CLI) | payer MEDICARE, OTHER, SELFPAY ==
[2018-01-18 15:40] VITALS: BMI 29.9
--- NOTE | 2020-12-25 13:45 | DI.MRI.S_ITS ---
PROCEDURE: MR CERVICAL SPINE WO CON INDICATIONS: Spinal stenosis, cervical region TECHNIQUE: Noncontrast sagittal T1 spin echo and T2 fast spin echo, sagittal STIR, foraminal oblique sagittal T2 fast spin echo, and axial gradient echo or T2 fast spin echo through the cervical spine. COMPARISON: None. FINDINGS: Image quality: Excellent. Alignment and Curvature: Mild degenerative anterior subluxation of C4 over C5 noted. Bone Marrow: Marrow demonstrates normal overall signal. Spinal Cord: Visualized spinal cord has normal size and signal. No cerebellar tonsillar herniation. Paraspinous Soft Tissues: No paravertebral masses. Prevertebral soft tissues are normal in thickness. C2-C3: Normal appearance. C3-C4: Normal appearance. C4-C5: Disc height is preserved. Mild hypertrophic facet joints present. No central stenosis. Moderate right foraminal stenosis. C5-C6: Disc space narrowing and posterior disc osteophyte complex flattens the ventral surface of the cord without cord indentation. Mild bilateral foraminal stenosis present. C6-C7: Mild disc space narrowing and posterior disc osteophyte complex results in mild central and moderate right foraminal stenosis. C7-T1: Normal appearance. IMPRESSION: Multilevel degenerative disc disease and arthropathy results in moderate C5-6 central stenosis Approved by: Chase Burgos M.D. on 12/25/2020 at 14:59
== END ==
PROVIDERS: PCP Family Medicine; Referring Provider Orthopaedic Surgery Orthopaedic Surgery of the Spine; Visit Provider Orthopaedic Surgery Orthopaedic Surgery of the Spine
DX: M48.02 Spinal stenosis, cervical region (principal); M47.812 Spondylosis without myelopathy or radiculopathy, cervical region
CPT/HCPCS: 72141